=== PATIENT | female | born 1955 | race Caucasian/White ===

== ENCOUNTER → 2023-08-21 15:22 | Outpatient (REF) | payer MEDICARE, SELFPAY ==
[2023-08-21 16:00] LABS: % Basophils 0.4 % (0-2); % Lymphocytes 52.6 % (20.5-51.1); Absolute Lymphocytes 1.2 10^3/uL (1.2-3.4); Absolute Monocytes 0.2 10^3/uL (0.1-0.6); Absolute Neutrophils 0.9 10^3/uL (1.4-6.5); Hematocrit 34.2 % (37.0-47.0); Hemoglobin 12.7 g/dL (12.0-16.0); Mean Corp Hgb Conc. 37.1 g/dL (33.0-37.0); Mean Corpuscular Hgb 43.3 pg (27.0-31.0); Mean Corpuscular Volume 116.7 fL (81.0-99.0); Mean Platelet Volume 9.5 fL (7.4-10.4); Nucleated Red Blood Cells % 0 %; Platelet Count 207 10^3/uL (130-400); Red Blood Cell Count 2.93 10^6/uL (4.20-5.40); Red Cell Dist. Width 11.9 % (11.5-14.5); White Blood Cell Count 2.3 10^3/uL (4.8-10.8)
[2023-08-21 16:27] LABS: ALT (SGPT) 18 U/L (0-35); AST (SGOT) 43 U/L (14-36); Albumin 4.2 g/dl (3.5-5.0); Alkaline Phosphatase 48 U/L (38-126); Blood Urea Nitrogen 9 mg/dl (7-17); Calcium 9.9 mg/dl (8.4-10.2); Carbon Dioxide 31 mmol/L (22-30); Chloride 92 mmol/L (98-107); Glucose 157 mg/dl (70-99); Potassium 4.2 mmol/L (3.5-5.1); Sodium 131 mmol/L (135-145); Total Bilirubin 0.9 mg/dl (0.2-1.3); Total Protein 7.4 g/dl (6.3-8.2); eGFR > 60.00
== END ==
LOC: REG 15:22
PROVIDERS: ATTENDING PHYSICIAN Internal Medicine Rheumatology; FAMILY PHYSICIAN Family Medicine
DX: M05.9 Rheumatoid arthritis with rheumatoid factor, unspecified (principal); Z51.81 Encounter for therapeutic drug level monitoring
CPT/HCPCS: 36415; 80053; 85025; 86140

== ENCOUNTER → 2023-10-28 11:29 | Outpatient (REF) | payer MEDICARE, SELFPAY ==
[2023-10-28 12:25] LABS: % Basophils 0.5 % (0-2); % Immature Granulocytes 0.8 % (0-0.5); % Lymphocytes 21.6 % (20.5-51.1); % Monocytes 8.8 % (1.7-9.3); % Neutrophils 68.3 % (42.2-75.2); Absolute Lymphocytes 0.8 10^3/uL (1.2-3.4); Absolute Monocytes 0.3 10^3/uL (0.1-0.6); Absolute Neutrophils 2.7 10^3/uL (1.4-6.5); Hematocrit 21.1 % (37.0-47.0); Hemoglobin 7.2 g/dL (12.0-16.0); Mean Corp Hgb Conc. 34.1 g/dL (33.0-37.0); Mean Corpuscular Hgb 41.1 pg (27.0-31.0); Mean Corpuscular Volume 120.6 fL (81.0-99.0); Nucleated Red Blood Cells % 0 %; Platelet Count 278 10^3/uL (130-400); Red Blood Cell Count 1.75 10^6/uL (4.20-5.40); Red Cell Dist. Width 13.2 % (11.5-14.5); White Blood Cell Count 3.9 10^3/uL (4.8-10.8)
[2023-10-28 13:02] LABS: ALT (SGPT) 12 U/L (0-35); AST (SGOT) 32 U/L (14-36); Albumin 3.9 g/dl (3.5-5.0); Alkaline Phosphatase 60 U/L (38-126); Blood Urea Nitrogen 3 mg/dl (7-17); Calcium 9.6 mg/dl (8.4-10.2); Carbon Dioxide 26 mmol/L (22-30); Chloride 95 mmol/L (98-107); Glucose 95 mg/dl (70-99); Potassium 4.7 mmol/L (3.5-5.1); Sodium 129 mmol/L (135-145); Total Bilirubin 0.5 mg/dl (0.2-1.3); Total Protein 6.4 g/dl (6.3-8.2); eGFR > 60.00
[2023-10-28 13:05] LABS: C-Reactive Protein < 5.00 mg/L (0.0-10.00)
== END ==
LOC: REG 11:29
PROVIDERS: ATTENDING PHYSICIAN Internal Medicine Rheumatology; FAMILY PHYSICIAN Family Medicine; REFERRING PHYSICIAN Internal Medicine Hematology & Oncology
DX: M05.9 Rheumatoid arthritis with rheumatoid factor, unspecified (principal); Z51.81 Encounter for therapeutic drug level monitoring
CPT/HCPCS: 36415; 80053; 85025; 86140

== ENCOUNTER → 2023-12-22 14:42 | Outpatient (REF) | payer MEDICARE, SELFPAY ==
[2023-12-22 15:40] LABS: % Basophils 0.9 % (0-2); % Eosinophils 0.5 % (0-6); % Immature Granulocytes 0.5 % (0-0.5); % Lymphocytes 41.4 % (20.5-51.1); % Monocytes 9.5 % (1.7-9.3); % Neutrophils 47.2 % (42.2-75.2); Absolute Lymphocytes 0.9 10^3/uL (1.2-3.4); Absolute Monocytes 0.2 10^3/uL (0.1-0.6); Absolute Neutrophils 1.1 10^3/uL (1.4-6.5); Hematocrit 35.2 % (37.0-47.0); Hemoglobin 12.7 g/dL (12.0-16.0); Mean Corp Hgb Conc. 36.1 g/dL (33.0-37.0); Mean Corpuscular Hgb 39.4 pg (27.0-31.0); Mean Corpuscular Volume 109.3 fL (81.0-99.0); Mean Platelet Volume 9.9 fL (7.4-10.4); Nucleated Red Blood Cells % 0 %; Platelet Count 268 10^3/uL (130-400); Red Blood Cell Count 3.22 10^6/uL (4.20-5.40); Red Cell Dist. Width 11.6 % (11.5-14.5); White Blood Cell Count 2.2 10^3/uL (4.8-10.8)
[2023-12-22 16:08] LABS: ALT (SGPT) 15 U/L (0-35); AST (SGOT) 40 U/L (14-36); Albumin 4.9 g/dl (3.5-5.0); Alkaline Phosphatase 59 U/L (38-126); Blood Urea Nitrogen 14 mg/dl (7-17); C-Reactive Protein < 5.00 mg/L (0.0-10.00); Calcium 9.9 mg/dl (8.4-10.2); Carbon Dioxide 29 mmol/L (22-30); Chloride 94 mmol/L (98-107); Glucose 131 mg/dl (70-99); Potassium 4.7 mmol/L (3.5-5.1); Sodium 133 mmol/L (135-145); Total Bilirubin 0.4 mg/dl (0.2-1.3); Total Protein 8.2 g/dl (6.3-8.2); eGFR > 60.00
== END ==
LOC: REG 14:42
PROVIDERS: ATTENDING PHYSICIAN Internal Medicine Rheumatology; FAMILY PHYSICIAN Family Medicine
DX: M05.9 Rheumatoid arthritis with rheumatoid factor, unspecified (principal); Z51.81 Encounter for therapeutic drug level monitoring
CPT/HCPCS: 36415; 80053; 85025; 86140

== ENCOUNTER → 2024-01-20 15:08 | Outpatient (REF) | payer MEDICARE, SELFPAY ==
[2024-01-20 16:08] LABS: % Basophils 0.2 % (0-2); % Eosinophils 0.5 % (0-6); % Immature Granulocytes 0.2 % (0-0.5); % Lymphocytes 22.8 % (20.5-51.1); % Monocytes 7.8 % (1.7-9.3); % Neutrophils 68.5 % (42.2-75.2); Absolute Monocytes 0.3 10^3/uL (0.1-0.6); Hematocrit 33.6 % (37.0-47.0); Hemoglobin 12.5 g/dL (12.0-16.0); Mean Corp Hgb Conc. 37.2 g/dL (33.0-37.0); Mean Corpuscular Hgb 39.8 pg (27.0-31.0); Mean Platelet Volume 9.9 fL (7.4-10.4); Nucleated Red Blood Cells % 0 %; Platelet Count 210 10^3/uL (130-400); Red Blood Cell Count 3.14 10^6/uL (4.20-5.40); Red Cell Dist. Width 11.9 % (11.5-14.5); Reticulocyte Count 1.5 % (0.4-2.8); White Blood Cell Count 4.4 10^3/uL (4.8-10.8)
[2024-01-20 16:20] LABS: ALT (SGPT) 14 U/L (0-35); AST (SGOT) 36 U/L (14-36); Albumin 4.5 g/dl (3.5-5.0); Alkaline Phosphatase 48 U/L (38-126); Blood Urea Nitrogen 13 mg/dl (7-17); Calcium 10.1 mg/dl (8.4-10.2); Carbon Dioxide 28 mmol/L (22-30); Chloride 93 mmol/L (98-107); Glucose 106 mg/dl (70-99); Potassium 4.5 mmol/L (3.5-5.1); Sodium 130 mmol/L (135-145); Total Bilirubin 0.7 mg/dl (0.2-1.3); Total Protein 7.1 g/dl (6.3-8.2); eGFR > 60.00
[2024-01-20 16:23] LABS: C-Reactive Protein < 5.00 mg/L (0.0-10.00)
[2024-01-20 16:40] LABS: Vitamin D, 25-OH*** 30.4 ng/mL (30-80)
[2024-01-20 17:29] LABS: Folate 4.6 ng/ml (2.76-20); Vitamin B12 206 pg/ml (239-931)
[2024-01-21 10:21] LABS: Intact PTH 64.6 pg/ml (13.6-85.8)
== END ==
LOC: REG 15:08
PROVIDERS: ATTENDING PHYSICIAN Internal Medicine Hematology & Oncology; FAMILY PHYSICIAN Family Medicine; REFERRING PHYSICIAN Internal Medicine Rheumatology
DX: E55.9 Vitamin D deficiency, unspecified (principal); M05.9 Rheumatoid arthritis with rheumatoid factor, unspecified; Z51.81 Encounter for therapeutic drug level monitoring; C91.Z0 Other lymphoid leukemia not having achieved remission; M06.9 Rheumatoid arthritis, unspecified; D51.9 Vitamin B12 deficiency anemia, unspecified
CPT/HCPCS: 36415; 80053; 82306; 82607; 82746; 83970; 85025; 85045; 86140

== ENCOUNTER → 2024-02-19 10:57 | Outpatient (REF) | payer MEDICARE, SELFPAY | LOC: RAD 10:57 | PROVIDERS: ATTENDING PHYSICIAN Internal Medicine Rheumatology; FAMILY PHYSICIAN Family Medicine | DX: M81.0 Age-related osteoporosis without current pathological fracture (principal) | CPT/HCPCS: 77080; 77081 ==

== ENCOUNTER → 2024-02-27 10:35 | Outpatient (REF) | payer MEDICARE, SELFPAY | LOC: RAD 10:35 | PROVIDERS: ATTENDING PHYSICIAN Internal Medicine Rheumatology; FAMILY PHYSICIAN Family Medicine | DX: R94.5 Abnormal results of liver function studies (principal) | CPT/HCPCS: 76700 ==

== ENCOUNTER → 2024-05-26 11:32 | Outpatient (REF) | payer MEDICARE, SELFPAY ==
[2024-05-26 14:19] LABS: % Basophils 0.5 % (0-2); % Immature Granulocytes 0.5 % (0-0.5); % Lymphocytes 26.4 % (20.5-51.1); % Monocytes 11.4 % (1.7-9.3); % Neutrophils 61.2 % (42.2-75.2); Absolute Lymphocytes 0.6 10^3/uL (1.2-3.4); Absolute Monocytes 0.3 10^3/uL (0.1-0.6); Absolute Neutrophils 1.4 10^3/uL (1.4-6.5); Hematocrit 30.9 % (37.0-47.0); Hemoglobin 11.5 g/dL (12.0-16.0); Mean Corp Hgb Conc. 37.2 g/dL (33.0-37.0); Mean Corpuscular Hgb 40.8 pg (27.0-31.0); Mean Corpuscular Volume 109.6 fL (81.0-99.0); Mean Platelet Volume 10.2 fL (7.4-10.4); Nucleated Red Blood Cells % 0 %; Platelet Count 220 10^3/uL (130-400); Red Blood Cell Count 2.82 10^6/uL (4.20-5.40); Red Cell Dist. Width 11.8 % (11.5-14.5); White Blood Cell Count 2.2 10^3/uL (4.8-10.8)
[2024-05-26 14:41] LABS: Folate 4.1 ng/ml (2.76-20); Vitamin B12 867 pg/ml (239-931)
== END ==
LOC: REG 11:32
PROVIDERS: ATTENDING PHYSICIAN Internal Medicine Hematology & Oncology; FAMILY PHYSICIAN Family Medicine
DX: C91.Z0 Other lymphoid leukemia not having achieved remission (principal); M06.9 Rheumatoid arthritis, unspecified; D51.9 Vitamin B12 deficiency anemia, unspecified
CPT/HCPCS: 36415; 82607; 82746; 83516; 85025; 86340

== ENCOUNTER → 2024-10-18 13:04 | Outpatient (REF) | payer MEDICARE, SELFPAY ==
[2024-10-18 13:53] LABS: % Basophils 0.7 % (0-2); % Eosinophils 0.3 % (0-6); % Immature Granulocytes 0.3 % (0-0.5); % Lymphocytes 24.2 % (20.5-51.1); % Monocytes 10.9 % (1.7-9.3); % Neutrophils 63.6 % (42.2-75.2); Absolute Lymphocytes 0.7 10^3/uL (1.2-3.4); Absolute Monocytes 0.3 10^3/uL (0.1-0.6); Absolute Neutrophils 1.9 10^3/uL (1.4-6.5); Hematocrit 33.9 % (37.0-47.0); Hemoglobin 12.3 g/dL (12.0-16.0); Mean Corp Hgb Conc. 36.3 g/dL (33.0-37.0); Mean Corpuscular Hgb 40.1 pg (27.0-31.0); Mean Corpuscular Volume 110.4 fL (81.0-99.0); Mean Platelet Volume 9.7 fL (7.4-10.4); Nucleated Red Blood Cells % 0 %; Platelet Count 232 10^3/uL (130-400); Red Blood Cell Count 3.07 10^6/uL (4.20-5.40); Red Cell Dist. Width 12.8 % (11.5-14.5)
[2024-10-18 14:25] LABS: ALT (SGPT) 14 U/L (0-35); AST (SGOT) 29 U/L (14-36); Albumin 4.1 g/dl (3.5-5.0); Alkaline Phosphatase 50 U/L (38-126); Blood Urea Nitrogen 14 mg/dl (7-17); Calcium 10.4 mg/dl (8.4-10.2); Carbon Dioxide 29 mmol/L (22-30); Chloride 97 mmol/L (98-107); Glucose 130 mg/dl (70-99); LDH 186 U/L (120-246); Potassium 4.3 mmol/L (3.5-5.1); Sodium 134 mmol/L (135-145); Total Bilirubin 0.7 mg/dl (0.2-1.3); eGFR > 60.00
[2024-10-18 14:28] LABS: C-Reactive Protein < 5.00 mg/L (0.0-10.00)
[2024-10-18 15:34] LABS: Folate 3.8 ng/ml (2.76-20); Vitamin B12 471 pg/ml (239-931)
== END ==
LOC: REG 13:04
PROVIDERS: ATTENDING PHYSICIAN Internal Medicine Rheumatology; FAMILY PHYSICIAN Family Medicine; REFERRING PHYSICIAN Internal Medicine Hematology & Oncology
DX: C91.Z0 Other lymphoid leukemia not having achieved remission (principal); M06.9 Rheumatoid arthritis, unspecified; D51.9 Vitamin B12 deficiency anemia, unspecified; M05.9 Rheumatoid arthritis with rheumatoid factor, unspecified; Z51.81 Encounter for therapeutic drug level monitoring; M19.039 Primary osteoarthritis, unspecified wrist
CPT/HCPCS: 36415; 73100; 80053; 82607; 82746; 83615; 85025; 86140

== ENCOUNTER → 2025-03-28 13:39 | Outpatient (REF) | payer MEDICARE, SELFPAY ==
[2025-03-28 15:06] LABS: Blood Urea Nitrogen 8 mg/dl (7-17)
== END ==
LOC: REG 13:39
PROVIDERS: ATTENDING PHYSICIAN Otolaryngology; FAMILY PHYSICIAN Family Medicine
DX: C44.02 Squamous cell carcinoma of skin of lip (principal)
CPT/HCPCS: 36415; 82565; 84520

== ENCOUNTER → 2025-03-29 08:51 | Outpatient (REF) | payer MEDICARE, SELFPAY | LOC: RAD 08:51 | PROVIDERS: ATTENDING PHYSICIAN Otolaryngology; FAMILY PHYSICIAN Family Medicine | DX: C44.02 Squamous cell carcinoma of skin of lip (principal) | CPT/HCPCS: 70491; Q9967 ==

== ENCOUNTER 2025-05-17 22:38 | Inpatient (IN) | payer MEDICARE, SELFPAY ==
[2025-05-17 17:36] VITALS: BP 176/80
[2025-05-17 18:07] LABS: Hematocrit 35.7 % (37.0-47.0); Hemoglobin 12.8 g/dL (12.0-16.0); Mean Corp Hgb Conc. 35.9 g/dL (33.0-37.0); Mean Corpuscular Volume 103.2 fL (81.0-99.0); Nucleated Red Blood Cells % 0 %; Platelet Count 179 10^3/uL (130-400); Red Cell Dist. Width 11.8 % (11.5-14.5)
[2025-05-17 18:17] LABS: ALT (SGPT) 11 U/L (0-35); AST (SGOT) 22 U/L (14-36); Albumin 4.2 g/dl (3.5-5.0); Alkaline Phosphatase 66 U/L (38-126); Blood Urea Nitrogen 14 mg/dl (7-17); Calcium 9.3 mg/dl (8.4-10.2); Carbon Dioxide 22 mmol/L (22-30); Chloride 89 mmol/L (98-107); Glucose 126 mg/dl (70-99); Lipase 271 U/L (23-300); Potassium 2.8 mmol/L (3.5-5.1); Sodium 126 mmol/L (135-145); Total Protein 7.9 g/dl (6.3-8.2); eGFR > 60.00
[2025-05-17 20:47] VITALS: BP 191/72
[2025-05-17 20:48] VITALS: BMI 19.7
[2025-05-17 21:04] VITALS: BP 199/74
--- NOTE | 2025-05-17 21:21 | ED.GENMED ---
History of Present Illness
<Rena Melgar NP - Last Filed: 05/18/25 14:08>
General
Chief Complaint: Failure to Thrive
Source: patient, spouse and family (son)
Exam Limitations: none
Time Seen by Provider: 05/17/25 21:01
History of Present Illness
History of Present Illness:
Patient to ED for evaluation of increasing weakness poor appetite. According to spouse patient had surgical removal of skin cancer from her left cheek and upper lip. Procedure was done at [facility] on April 29. Sutures were removed on April
, no further visits were required. Spouse reports that since the procedure she has not been eating or drinking. She has become very weak and is now unable to ambulate or transfer without max assistance. He reports that he was only able to give
her a small amount of soup this morning. She denies any pain or discomfort. Brought to the emergency room by spouse and son for evaluation.
Past History
<Rena Melgar NP - Last Filed: 05/18/25 14:08>
Past History
ED Past Medical History: Arrthythmia (Palpitations), HTN and Other (Rheumatoid arthritis)
ED Past Surgical History: Negative Cardiac
Social History
Tobacco: Smoker
Alcohol: Daily
Drug: None
Personal:
Living: with family
Family History
Family History: Hypertension
Review of Systems
<Rena Melgar NP - Last Filed: 05/18/25 14:08>
Review of Systems
Allergies reviewed?: Yes
All Other Systems: ROS reviewed and negative except as documented in HPI and ROS
Constitutional: Reports no symptoms
EENT: Reports other (Skin cancer removed from left cheek and left upper lip. No opening is noted at the center of the incision. She denies any pain she denies any discharge.)
Respiratory: Reports no symptoms
Cardiac: Reports no symptoms
ABD/GI: Reports anorexia
: Reports no symptoms
Musculoskeletal: Reports no symptoms
Skin: Reports other (Surgical excision of skin cancer to left side of face and lip on 04/29. 1 cm round opening noted at center of incision. There is no drainage)
Neurological: Reports weakness
Psychiatric: Reports no symptoms
Phy Exam
<Rena Melgar NP - Last Filed: 05/18/25 14:08>
General Physical Exam
General Presentation: moderate distress
General age: appears stated age
General Skin: warm and dry
General Habitus: normal
General Mental: alert
Cardiovascular Exam
Cardiovascular Exam: regular rate/rhythm and no edema
Pulmonary Exam
Pulmonary Exam: lungs clear and no respiratory distress
Gastrointestinal Exam
Gastrointestinal Exam: normal bowel sounds, non tender, soft, no organomegaly and non distended
Musculoskeletal Exam
Musculoskeletal Exam: no edema and neuro vasc intact
Skin Exam
Skin Exam: warm/dry, no rash and other (Surgical incision noted on left side of face involving the upper lip. There is a 1 cm opening noted to center of incision. Opening tracks through buccal mucosa. There is no drainage, no erythema.)
Psychiatric Exam
Psychiatric Exam: normal mood/affect
Course
<Rena Melgar HAND SHAKER - Last Filed: 05/18/25 14:08>
Orders/Labs/Results
Orders:
Orders
05/17/25 Breakfast
Regular
At Your Request: Limited Participation
Oral Supplement (If unsure of flavor order apple or vanilla): Ensure Enlive Chocolate
Supplement Frequency: Daily
05/17/25 17:45
Complete Blood Count/With Diff Urgent
Comprehensive Metabolic Panel Urgent
Lipase Urgent
Magnesium Urgent
Comment: ADD ON
05/17/25 21:34
0.9% Sodium Chloride 1000 ml [Nss] 1,000 ml IV BOLUS
05/17/25 21:35
Urinalysis Reflex To Culture Urgent
Date Specimen was Collected: 05/18/25
Time Specimen was Collected: 03:08
05/17/25 21:45
Potassium Chloride [KCl] 40 meq 0.9% Sodium Chloride 250 ml [Nss] 250 ml IV NOW
05/17/25 22:23
Admit/Transfer Patient As Directed
Co-Sign Provider:
Level of Care: Inpatient admission
Assign to:: Telemetry
Physician / Group: angelica
Diagnosis: ambuloaty dysfunction
Reason for Telemetry: Other
Other Reason for Telemetry: hypokalemia
Date to Stop Telemetry: 05/19/25
Time to Stop Telemetry: 11:00
Reason for Hospitalization: ambulatory dysfunction
generalized weakness
Expected length of stay greater than two midnights?: Yes
ELOS- Estimated Length of Stay in days: 3
I certify the patient meets the requirements for IP care: Yes
Wound Culture [Wound/Abscess/Other Culture] Urgent
ADELINA Source: Face
Specimen Description: Left
Date Specimen was Collected: 05/17/25
Time Specimen was Collected: 22:08
PRN Pain Medication Management As Directed
May give lesser potent ordered pain med per pt: Yes
preference::
Protocol:: Medication orders for pain may be administered in a
manner that supports deferring to patient preference
when the pt is:
- Requesting an ordered lesser potent pain medication.
Least to most potent pain medications are defined
as: acetaminophen < NSAID < tramadol < opioids
(morphine, oxycodone, hydromorphone).
- Requesting a lesser dose of the same medication IF
ORDERED.
- Requesting a less intrusive route of administration
if both routes are prescribed by the provider (PO <
IV).
05/17/25 22:24
Code Status As Directed
Resuscitation Status: Full Code
05/17/25 22:28
Add On- LAB Urgent
Tests Added?: Magnesium
05/17/25 22:31
Potassium Chloride [KCl] 40 meq PO NOW STA
05/17/25 22:33
HydrALAZINE [Apresoline] 100 mg PO NOW STA
Metoprolol [Lopressor] 100 mg PO NOW STA
05/17/25 23:54
Acetaminophen [Tylenol] 650 mg PO Q4HPRN PRN
Bisacodyl [Dulcolax] 10 mg RECTAL [id number] PRN
Docusate W/Senna [Senokot-S] 1 tablet PO BIDPRN PRN
Polyethylene Glycol Powder [Miralax] 17 grams PO DAILYPRN PRN
05/17/25 23:54
NUTRITIONAL SUPPORT TEAM Routine
Activity As Directed
Activity Level: As Tolerated
Intake/ Output As Directed
Frequency: Per unit guidelines
Vital Signs As Directed
Frequency: Per unit guidelines
Weight As Directed
Frequency: Daily
Ot Eval And Treat Routine
Pt Eval And Treat Routine
Activity Level: As Tolerated
DX Deep Vein Thrombosis Video Routine
05/18/25 06:04
Basic Metabolic Panel IN AM
Complete Blood Count/No Diff IN AM
05/18/25 08:00
HydrALAZINE [Apresoline] 100 mg PO TID
Metoprolol [Lopressor] 100 mg PO BID
05/18/25 18:00
Enoxaparin Sodium [Lovenox] 40 mg SC QPM
05/19/25 06:00
Basic Metabolic Panel IN AM
Complete Blood Count/No Diff IN AM
05/19/25 11:00
DC Protocol for Telemetry ONCE
05/20/25 06:00
Basic Metabolic Panel IN AM
Complete Blood Count/No Diff IN AM
05/21/25 06:00
Basic Metabolic Panel IN AM
Complete Blood Count/No Diff IN AM
Abnormal Lab Results
05/17/25
17:45
WBC 2.3 L* 10^3/uL
(4.8-10.8)
RBC 3.46 L 10^6/uL
(4.20-5.40)
Hct 35.7 L %
(37.0-47.0)
MCV 103.2 H fL
(81.0-99.0)
MCH 37.0 H pg
(27.0-31.0)
Absolute Lymphs (auto) 0.5 L 10^3/uL
(1.2-3.4)
Monocytes % 16.6 H %
(1.7-9.3)
Sodium 126 L mmol/L
(135-145)
Potassium 2.8 L mmol/L
(3.5-5.1)
Chloride 89 L mmol/L
(98-107)
Creatinine 0.4 L mg/dL
(0.6-1.0)
Glucose 126 H mg/dl
(70-99)
Magnesium 1.4 L mg/dl
(1.6-2.3)
05/17/25 17:45
05/17/25 17:45
Vital Signs
Initial and Last Documented VS:
Initial Vital Signs
Temp Pulse Resp BP Pulse Ox
97.5 F 71 16 176/80 99
05/17/25 17:36 05/17/25 17:36 05/17/25 17:36 05/17/25 17:36 05/17/25 17:36
Last Documented Vital Signs
Temp Pulse Resp BP Pulse Ox
98.4 F 64 18 183/89 97
05/18/25 11:32 05/18/25 11:32 05/18/25 11:32 05/18/25 11:32 05/18/25 11:32
<Carmen Turner MD - Last Filed: 05/17/25 22:58>
Orders/Labs/Results
Orders:
Orders
05/17/25 Breakfast
Regular
At Your Request: Limited Participation
Oral Supplement (If unsure of flavor order apple or vanilla): Ensure Enlive Chocolate
Supplement Frequency: Daily
05/17/25 17:45
Complete Blood Count/With Diff Urgent
Comprehensive Metabolic Panel Urgent
Lipase Urgent
Magnesium Urgent
Comment: ADD ON
05/17/25 21:34
0.9% Sodium Chloride 1000 ml [Nss] 1,000 ml IV BOLUS
05/17/25 21:35
Urinalysis Reflex To Culture Urgent
Date Specimen was Collected: 05/18/25
Time Specimen was Collected: 03:08
05/17/25 21:45
Potassium Chloride [KCl] 40 meq 0.9% Sodium Chloride 250 ml [Nss] 250 ml IV NOW
05/17/25 22:23
Admit/Transfer Patient As Directed
Co-Sign Provider:
Level of Care: Inpatient admission
Assign to:: Telemetry
Physician / Group: angelica
Diagnosis: ambuloaty dysfunction
Reason for Telemetry: Other
Other Reason for Telemetry: hypokalemia
Date to Stop Telemetry: 05/19/25
Time to Stop Telemetry: 11:00
Reason for Hospitalization: ambulatory dysfunction
generalized weakness
Expected length of stay greater than two midnights?: Yes
ELOS- Estimated Length of Stay in days: 3
I certify the patient meets the requirements for IP care: Yes
Wound Culture [Wound/Abscess/Other Culture] Urgent
ADELINA Source: Face
Specimen Description: Left
Date Specimen was Collected: 05/17/25
Time Specimen was Collected: 22:08
PRN Pain Medication Management As Directed
May give lesser potent ordered pain med per pt: Yes
preference::
Protocol:: Medication orders for pain may be administered in a
manner that supports deferring to patient preference
when the pt is:
- Requesting an ordered lesser potent pain medication.
Least to most potent pain medications are defined
as: acetaminophen < NSAID < tramadol < opioids
(morphine, oxycodone, hydromorphone).
- Requesting a lesser dose of the same medication IF
ORDERED.
- Requesting a less intrusive route of administration
if both routes are prescribed by the provider (PO <
IV).
05/17/25 22:24
Code Status As Directed
Resuscitation Status: Full Code
05/17/25 22:28
Add On- LAB Urgent
Tests Added?: Magnesium
05/17/25 22:31
Potassium Chloride [KCl] 40 meq PO NOW STA
05/17/25 22:33
HydrALAZINE [Apresoline] 100 mg PO NOW STA
Metoprolol [Lopressor] 100 mg PO NOW STA
05/17/25 23:54
Acetaminophen [Tylenol] 650 mg PO Q4HPRN PRN
Bisacodyl [Dulcolax] 10 mg RECTAL [id number] PRN
Docusate W/Senna [Senokot-S] 1 tablet PO BIDPRN PRN
Polyethylene Glycol Powder [Miralax] 17 grams PO DAILYPRN PRN
05/17/25 23:54
NUTRITIONAL SUPPORT TEAM Routine
Activity As Directed
Activity Level: As Tolerated
Intake/ Output As Directed
Frequency: Per unit guidelines
Vital Signs As Directed
Frequency: Per unit guidelines
Weight As Directed
Frequency: Daily
Ot Eval And Treat Routine
Pt Eval And Treat Routine
Activity Level: As Tolerated
DX Deep Vein Thrombosis Video Routine
05/18/25 06:04
Basic Metabolic Panel IN AM
Complete Blood Count/No Diff IN AM
05/18/25 08:00
HydrALAZINE [Apresoline] 100 mg PO TID
Metoprolol [Lopressor] 100 mg PO BID
05/18/25 18:00
Enoxaparin Sodium [Lovenox] 40 mg SC QPM
05/19/25 06:00
Basic Metabolic Panel IN AM
Complete Blood Count/No Diff IN AM
05/19/25 11:00
DC Protocol for Telemetry ONCE
05/20/25 06:00
Basic Metabolic Panel IN AM
Complete Blood Count/No Diff IN AM
05/21/25 06:00
Basic Metabolic Panel IN AM
Complete Blood Count/No Diff IN AM
Abnormal Lab Results
05/17/25
17:45
WBC 2.3 L* 10^3/uL
(4.8-10.8)
RBC 3.46 L 10^6/uL
(4.20-5.40)
Hct 35.7 L %
(37.0-47.0)
MCV 103.2 H fL
(81.0-99.0)
MCH 37.0 H pg
(27.0-31.0)
Absolute Lymphs (auto) 0.5 L 10^3/uL
(1.2-3.4)
Monocytes % 16.6 H %
(1.7-9.3)
Sodium 126 L mmol/L
(135-145)
Potassium 2.8 L mmol/L
(3.5-5.1)
Chloride 89 L mmol/L
(98-107)
Creatinine 0.4 L mg/dL
(0.6-1.0)
Glucose 126 H mg/dl
(70-99)
Magnesium 1.4 L mg/dl
(1.6-2.3)
05/17/25 17:45
05/17/25 17:45
Vital Signs
Initial and Last Documented VS:
Initial Vital Signs
Temp Pulse Resp BP Pulse Ox
97.5 F 71 16 176/80 99
05/17/25 17:36 05/17/25 17:36 05/17/25 17:36 05/17/25 17:36 05/17/25 17:36
Last Documented Vital Signs
Temp Pulse Resp BP Pulse Ox
98.4 F 64 18 183/89 97
05/18/25 11:32 05/18/25 11:32 05/18/25 11:32 05/18/25 11:32 05/18/25 11:32
<Rena Melgar NP - Last Filed: 05/18/25 14:08>
*Pulse Oximetry
SaO2: 98
Oxygen Mode of Delivery: Room air
Patient hypoxic: no
*Critical Care Note
Total Time (30-74mins, 75-104mins- exclusive of procedures): Not Applicable
<Rena Melgar NP - Last Filed: 05/18/25 14:08>
Update Note
Update Note:
Patient to the emergency department for evaluation of weakness poor appetite. She had a surgical incision of skin cancer completed on 04/29 area involved the left cheek and upper lip. Sutures were removed on 05/12. She presents today with a 1 cm
round opening at the center of the incision. The opening travels through to the left buccal mucosa. There is no surrounding erythema, there is no swelling or discharge. She is afebrile. Patient is visibly weak. Spouse states that she is no
longer able to ambulate or transfer without maximum assistance. Labs reviewed. WBC is 2.1 which is baseline for her. She is currently maintained on xeljanz for her rheumatoid arthritis. Sodium of 126 noted. Patient's spouse says she has had
low sodium in the past but he is unaware of what the actual level was., or what would be considered normal for her. Potassium is 2.8. Will admit to the hospitalist for weakness, hyponatremia, hypokalemia. IV fluids/K rider initiated
ED Attending Note
<Rena Melgar NP - Last Filed: 05/18/25 14:08>
-
Portions of this chart may have been created with voice recognition software.� Occasional wrong word or��sound alike� substitutions may have occurred due to the inherent limitations of voice recognition software.
<Carmen Turner MD - Last Filed: 05/17/25 22:58>
ED Attending Note
Patient seen and examined by attending physician: Yes
I performed the substantive portion of visit, reviewed & personally made and approve the management plan that is documented in note by myself or ANCA.: Yes
ED Attending Note:
Patient is breathing comfortably. Heart sounds regular.
Discharge Plan
Departure
Patient Disposition: Admit
Date of Disposition: 05/17/25
Time of Disposition: 21:36
Presentation/result/management discussed w/ accepting MD/DO: Hospitalist
Patient with high blood pressure during this ER visit?: No
Condition: Good
Covid-19: Not Applicable
Discharge Problem:
Weakness, Acute hyponatremia, Hypokalemia
Interventions
Interventions:
*Risk Screen - Suicide Last Done: 05/17/25 17:36
*General Assessment Last Done: 05/17/25 20:48
*Neglect/Abuse Screening Last Done: 05/17/25 17:36
*ED- Fall Risk Assessment Last Done: 05/17/25 20:48
*ED COVID-19 Vaccine History Last Done: 05/17/25 20:48
*ED Influenza Vaccine History Last Done: 05/17/25 20:48
*Nursing Disposition Last Done: 05/18/25 00:52
Discharge Date and Time
Discharge Date/Time: 05/18/25 00:53
--- NOTE | 2025-05-17 21:53 | HPS.HSE ---
Addendum entered and electronically signed by Foster Justin DO 05/17/25 23:28:
Patient seen and examined independently. Agree with findings and plan as set forth by ELIESER Henderson.
Patient is a 70y F with PMH significant for hypertension, RA and recent surgery for lip cancer who presents to ED for evaluation of poor PO intake and generalized weakness. History obtained from patient and family at the bedside. Patient
underwent surgery on 04/29 at [facility] surgical center for 'lip cancer'. Since that time she has not been eating / drinking very well at all. Patient denies any significant pain with eating, swallowing, etc.
Patient was seen about one week after surgery for suture removal. She was given Rx for Augmentin liquid and viscous lidocaine at that time which she took for 7 days. states that her appetite significantly decreased following that.
She has been nauseated with dry heaves but no actual emesis. Few loose stools - but small volume, no profuse diarrhea, bloody stools, etc.
No fevers / chills.
Patient has been increasingly weak and today was unable to get OOB even with assistance. Family brought her to the ED for further evaluation.
Ass:
Weakness / Fatigue
Hypokalemia
Chronic Hyponatremia
Skin Cancer / Lip Cancer s/p Excision on 04/29
Chronic Leukopenia
Chronic HFpEF
Benign Hypertension
Rheumatoid Arthritis
Plan:
Admit for further evaluation and treatment.
PO potassium replacement now and in AM.
Patient complains of burning with IV replacement - even at low rates.
Magnesium replacement.
Suspect anorexia / nausea due to abx course over the past 7-10 days.
Observe off of further abx for now.
Encourage PO intake.
Speech / Dietary evaluations.
BP markedly elevated - patient denies pain at present.
Continue metoprolol and hydralazine.
Change lisinopril to spironolactone and adjust dose as needed for improved BP control.
Follow serial labs / lytes.
IV hydralazine as needed for very high BP.
Wound Care for local care recommendations - follow-up with surgeon at [facility] after discharge.
Original Note:
Family Physician
-
Family Physician: Eugenia Cedeño
Chief Complaint
-
worsening weakness
poor appetite
History of Present Illness
70 year old with PMH for palpitation, HTn, RA presented to us with worsening weakness and poor appetite. According to spouse patient had surgical removal of skin cancer from her left cheek and upper lip on april 29 at [facility]. Sutures were
removed on May 09, no further visits were required. Spouse reports that since the procedure she has not been eating or drinking.denied trouble swallowing or chewing. she just don't feel like eating. patient stated some discomfort at the wound.
patient progressively getting weaker. she is not able to ambulate. she does not have any energy to do anything. she is complaining of dizzy. denied PANTOJA. denied fever, chills, cough, congestion. denied chest pain,sob. denied abdominal pain,n,v,d.
denied dysuria or hematuria
wound culture sent from ER. patient recived iv kcl and fluids in ER. admitting for further management.
Medical History
Past Medical History
Past Medical History: Reports Other
Additional Past Medical History:
Hypertension, gastric ulcer, rheumatoid arthritis, herpes zoster, SVT, hypertension, Carlson's esophagus
Past Surgical History: Reports Other
Additional Past Surgical History:
skin cancer surgery
Social History
Tobacco: Non-smoker
Alcohol: None
Drug: None
Personal:
Living: With Family
Family History
Family History: Not pertinent
Allergies / Home Medications
Allergies reflects when Allergies were last updated in [facility].
Home Medications with original date entered in [facility]
Allergy/Medication List:
Allergies
Allergy/AdvReac Type Severity Reaction Status Date / Time
No Known Allergies Allergy Verified 05/17/25 17:36
Home Medications
hydralazine 100 mg tablet 100 mg PO TID 03/03/19
metoprolol tartrate 100 mg tablet 100 mg PO BID 03/03/19
lisinopril 40 mg tablet 40 mg PO BID 03/21/23
magnesium oxide 400 mg PO Q72H 03/21/23
tofacitinib 5 mg tablet (Xeljanz) 5 mg PO BID 03/21/23
acetaminophen 500 mg tablet (Pain Relief Extra Strength (acetaminophen)) 1,000 mg (2 x 500 mg) PO TID Mild Pain #30 tabs 03/23/23
nifedipine 30 mg tablet,extended release 30 mg PO BID HTN #60 tabs 03/23/23
oxycodone 10 mg tablet 10 mg PO Q4HPRN PRN Mod sev pain #15 tabs 03/23/23
Review of Systems
-
Constitutional: Reports No Symptoms
EENT: Reports No Symptoms
Respiratory: Reports No Symptoms
Cardiac: Reports No Symptoms
: Reports No Symptoms
Musculoskeletal: Reports No Symptoms
Skin: Reports No Symptoms
Neurological: Reports Weakness
Endocrine: Reports No Symptoms
Hematologic/Lymphatic: Reports No Symptoms
Psych: Reports No Symptoms
Physical Exam
Vital Signs
Vital Signs
Temp Pulse Resp BP Pulse Ox
97.5 F 74 28 199/74 98
05/17/25 17:36 05/17/25 21:04 05/17/25 21:04 05/17/25 21:04 05/17/25 21:22
Physical Exam
General: Well Developed, Well Nourished and No Apparent Distress
HEENT: NormoCephalic, Moist mucous membranes and Atraumatic
Respiratory: Clear
Cardiac: S1/S2 and Regular Rhythm; No Murmur or Rub
GI: Soft, Non Tender, Non Distended and Normal Bowel Sounds; No Organomegaly
Rectal: Deferred by Provider
Musculoskeletal: No Clubbing, No Cyanosis and No Edema
Skin: Other (skin cancer removed from left cheeck and upper lip, opening on the edge of the wound)
Neuro: AO x 3 and Nonfocal/grossly intact
Psych: Calm
Laboratory Results
-
05/17/25 17:45
05/17/25 17:45
Laboratory Results
Total Bilirubin 0.9 mg/dl (0.2-1.3) 05/17/25 17:45
AST 22 U/L (14-36) 05/17/25 17:45
ALT 11 U/L (0-35) 05/17/25 17:45
Alkaline Phosphatase 66 U/L (38-126) 05/17/25 17:45
Lipase 271 U/L (23-300) 05/17/25 17:45
Data Reviewed
-
Lab Data: Labs Reviewed by me
Impression/Plan
-
#generalized weakness/ambulatory dysfunction likely from poor oral intake
-PT/OT consulted.
-nutrition consulted.
#acute on chornic hyponatremia/hypokalemia from poor oral intake
-na 126, k 2.8
- IV KCl in ER
-oral kcl
- Normal Saline x 1 bag in the ER
#lip/cheek cancer s/p removal on April 29
-wound culture obtained.
#chronic leukopenia
-wbc 2.3
#Chronic diastolic congestive heart failure grade 2
#Moderate aortic regurgitation
-strict I&O, daily weight
Essential/HTN
- hydralazine/lisinopril/metoprolol continued
Rheumatoid Arthritis
�- on Xeljanz, but not taking for past few weeks.
DVT Prophylaxis:� Lovenox
Code Status: Full
[2025-05-17 22:00] VITALS: BP 190/75
[2025-05-17] MEDS: KCL 270 MEQ IV (22:10)
[2025-05-17] MEDS: NSS 1000 IV (22:14)
[2025-05-17 22:44] VITALS: BP 197/70
[2025-05-17] MEDS: KCL 40 MEQ PO (22:44)
[2025-05-17] MEDS: APRESOLINE 100 MG PO (22:44)
[2025-05-17] MEDS: LOPRESSOR 100 MG PO (22:46)
[2025-05-17 23:00] LABS: Magnesium 1.4 mg/dl (1.6-2.3)
[2025-05-18] VITALS (12 sets, daily range): BP systolic 108–200; BP diastolic 70–94; PULSE 64–65; O2SAT 98–99; BMI 17.3
[2025-05-18] MEDS: MAGNESIUM SULFATE 50 IV (00:12)
[2025-05-18] MEDS: APRESOLINE 10 MG IV ×2 (01:30→05:33)
--- NOTE | 2025-05-18 03:14 | DOWNTIME ---
There was a [employer] Downtime on 05/18/2025 from 0100 to 05/18/2025 at 0255. Downtime documentation of patient's care, including medication administrations, has been reconciled in the electronic record per guidelines. Refer to the
patient's paper chart under the miscellaneous tab to see printed paper medication records and downtime forms.
[2025-05-18 03:28] LABS: Urine Character Clear (Clear)
[2025-05-18 03:54] LABS: Urine Squamous Cell 0-2 /LPF (Few)
[2025-05-18 03:55] LABS: Urine Red Blood Cell 0-2 /HPF (0-2); Urine White Cell 0-2 /HPF (0-5)
--- NOTE | 2025-05-18 05:27 | PTCARENOTE ---
Pt's blood pressure at 0505 this morning is 188/78, pulse-64. When she arrived from ED on the floor she was 200/94 around 1:20am and I gave her hydralazine IV PRN [id number]. She came down to 180/88 manual around 2:30am. But this morning she is
running high again 188/78 manually. She is not due for PRN Hydralazine till 7:30am. Notified BRASS POLISHER. BRASS POLISHER changed the order of Hydralazine to [id number] PRN.
--- NOTE | 2025-05-18 05:29 | PTCARENOTE ---
Pt arrived from ED on stretcher. Pt was pulled over from stretcher to bed safely. Pt had Magnisum IV fluids running. Pt is AO*3 and cooperative. Bed alarm in place. Pt's family at bedside on arrival. Educated pt on use of call sharif. Will continue to
monitor pt.
[2025-05-18 06:55] LABS: Hematocrit 34.7 % (37.0-47.0); Hemoglobin 12.4 g/dL (12.0-16.0); Mean Corp Hgb Conc. 35.7 g/dL (33.0-37.0); Mean Corpuscular Volume 103.3 fL (81.0-99.0); Platelet Count 177 10^3/uL (130-400); Red Cell Dist. Width 11.7 % (11.5-14.5)
[2025-05-18 07:25] LABS: Blood Urea Nitrogen 10 mg/dl (7-17); Calcium 8.6 mg/dl (8.4-10.2); Carbon Dioxide 22 mmol/L (22-30); Chloride 92 mmol/L (98-107); Estimated Creatinine Clearance 56 ml/min; Glucose 111 mg/dl (70-99); Potassium 2.7 mmol/L (3.5-5.1); Sodium 125 mmol/L (135-145); eGFR > 60.00
[2025-05-18] MEDS: KCL ELIXIR 40 MEQ PO (07:44)
[2025-05-18] MEDS: ALDACTONE PO (07:49)
[2025-05-18] MEDS: APRESOLINE 100 MG PO ×3 (07:50→21:26)
[2025-05-18] MEDS: LOPRESSOR 100 MG PO ×2 (07:50→19:48)
[2025-05-18] MEDS: NSS 1000 IV ×2 (08:35→20:50)
[2025-05-18] MEDS: ZOFRAN 4 MG IV (08:35)
[2025-05-18] MEDS: KCL 270 MEQ IV ×2 (08:35→13:13)
[2025-05-18] MEDS: ALDACTONE 12.5 MG PO ×2 (09:31→12:53)
--- NOTE | 2025-05-18 10:55 | W.PN.HOSP.TC ---
Today's Communication/Plan
-
neuro workup
wound care evaluation for recent surgical facial wound
IVF and replete lytes; encourage oral intake. repeat BMP 3 pm
SNF referrals
ST eval
Assessment / Plan
Assessment / Plan
Assessment:
acute on chronic encephalopathy, chronic per patients
- check MRI brain
- metabolic workup
- PT/OT evals - SNF recommended
- needs formal OP Dementia evaluation
Hyponatremia, acute on chronic
Hypochloremia
- IVF - NSS
- monitor BMP
Hypokalemia
Hypomagnesemia
- repleted via IV in ER, repeat level pending
Weakness/Fatigue from poor oral intake
- recent abx course could be affecting oral intake
- probiotic added
- monitor oral intake
- PT/OT evals - SNF recommended
Skin Cancer/Lip Cancer s/p Excision on 04/29
- [facility] ([facility] - Dr. Kaur Alcantara
- seen 05/09 - suture were removed
- completed 1 week of Augmentin previously
- has appointment Friday this week
- monitor drainage, monitor fevers
- wound care evaluation
Chronic Leukopenia
Chronic HFpEF
Benign Hypertension
- continue Hydralazine/BB - titrate as needed
- new to Aldactone - titrate to 25mg daily for SBP <150
Rheumatoid Arthritis
- hold Xeljanz
DVT ppx: Lovenox
Code: Full
Anticipated Discharge: > 48 hours
Subjective/Interval History
-
Date of Service: May 18, 2025
oriented to self, knows month and upcoming thanksgiving holiday
denies any specific complaints at present
Objective Data
-
Labs:
Laboratory Results
05/18/25
06:04
WBC 3.0 L
Hgb 12.4
Hct 34.7 L
Plt Count 177
Sodium 125 L
Potassium 2.7 L*
Chloride 92 L
Carbon Dioxide 22
BUN 10
Creatinine 0.4 L
Glucose 111 H
Calcium 8.6
Vital Signs:
Vital Signs
Temp Pulse Resp BP Pulse Ox
98.4 F 64 18 175/78 97
05/18/25 08:02 05/18/25 08:02 05/18/25 08:02 05/18/25 08:02 05/18/25 08:02
I&O
05/17/25 05/18/25 05/19/25
06:59 06:59 06:59
Intake Total 0 / 0
Output Total 700 / 700
Balance -700 / -700
Physical Exam
-
General: No Apparent Distress
HEENT: Normocephalic, Atraumatic and Other (L facial- skin cancer removed from left cheeck and upper lip, opening on the edge of the wound - scant thin drainage)
Cardiac: Regular Rhythm and S1/S2
Genito-urinary: No Costovertebral Tender
Neuro: Awake, Alert, Oriented (x1 self) and No Motor Deficits
Psych: Calm
Data Reviewed
-
Total Time Spent with Patient (in minutes): 45
Labs: Labs Reviewed by me
[2025-05-18] MEDS: VISBIOME 1 CAP PO (12:53)
--- NOTE | 2025-05-18 14:07 | WOUNDNOTE ---
LIP(LEFT SIDE)
--- NOTE | 2025-05-18 14:39 | WOUNDNOTE ---
WO RN NOTE: Reviewed chart and met with patient. Patient is s/p L facial- skin cancer removal from left check and upper lip, opening on the edge of the wound note. Edge of wound is covered with adherent slough with scant serous drainage. No odor
is noted. Nutritional support has been ordered. Sacrum and heels intact. Patient is on a Centrella Max Air. TT pics to Dr. Parada. Will defer to Dr. Parada for surgical or ENT consult. Will follow peripherally.
[2025-05-18 14:55] LABS: Magnesium 2.0 mg/dl (1.6-2.3)
--- NOTE | 2025-05-18 14:57 | PTOTSP ---
Speech Therapy Evaluation:
Pt with chronic risk factors of dysphagia including hx of RA, however pt without dysphagia/PNA hx. Currently, pt with oral impairments in the setting of scabbing/healing of L oral commissure following prior suturing contributing to reduced oral
opening, range of motion, and strength. Despite this, pt able to compensate with strategic bolus placement on R. No overt s/sx of aspiration.
Recommend:
1. Continue regular solids and thin liquids
2. Meds as tolerated
3. General aspiration precautions
4. CLEARING TUB WORKER to follow to monitor tolerance of current diet level
[2025-05-18 15:35] LABS: Blood Urea Nitrogen 10 mg/dl (7-17); Calcium 8.9 mg/dl (8.4-10.2); Carbon Dioxide 24 mmol/L (22-30); Chloride 95 mmol/L (98-107); Estimated Creatinine Clearance 56 ml/min; Glucose 130 mg/dl (70-99); Potassium 4.6 mmol/L (3.5-5.1); Sodium 128 mmol/L (135-145); eGFR > 60.00
--- NOTE | 2025-05-18 16:25 | CM ---
IA completed with assistance from spouse. Pt requires minimal assistance with showering. Spouse describes that pt has trouble with her balance. NO Hx of HH, SNF or home O2. NO insecurities identified. Confirmed PCP, Rx, insurance and NO drug
coverage.
Pt has a RW and cane but does not currently use them; furniture surfing instead.
Spouse stated that the patient has not had her Xeljanz in a month. [facility] was able to get this medication for free. When they ran out, they called the Dr office for a renewal but they never responded.
PT rec SNF. Spouse stated he was not interested in this recommendation at this time but was willing to read the 5-star Medicare report
Plan: Return home with services vs SNF.
[2025-05-18] MEDS: LOVENOX 40 MG SC (16:39)
[2025-05-18] MEDS: BACITRACIN OINTMENT 1 APPLIC TOPICAL ×2 (16:39→19:48)
[2025-05-18 16:54] LABS: Folate 2.3 ng/ml (2.76-20); Vitamin B12 > 1000 pg/ml (239-931)
[2025-05-19 04:20] VITALS: BP 172/84
[2025-05-19 06:00] VITALS: BMI 17.2
[2025-05-19 07:38] VITALS: BP 195/95
[2025-05-19 07:38] LABS: Ammonia < 9 umol/L (9-30)
[2025-05-19 07:39] LABS: Hematocrit 35.6 % (37.0-47.0); Hemoglobin 13.0 g/dL (12.0-16.0); Mean Corp Hgb Conc. 36.5 g/dL (33.0-37.0); Mean Corpuscular Volume 100.6 fL (81.0-99.0); Platelet Count 166 10^3/uL (130-400); Red Cell Dist. Width 11.5 % (11.5-14.5)
[2025-05-19] MEDS: LOPRESSOR 100 MG PO ×2 (07:45→20:36)
[2025-05-19] MEDS: APRESOLINE 100 MG PO ×2 (07:48→16:12)
[2025-05-19] MEDS: VISBIOME 1 CAP PO (07:49)
[2025-05-19] MEDS: BACITRACIN OINTMENT 1 APPLIC TOPICAL ×2 (07:51→20:36)
[2025-05-19 08:07] LABS: Blood Urea Nitrogen 7 mg/dl (7-17); Calcium 8.5 mg/dl (8.4-10.2); Carbon Dioxide 22 mmol/L (22-30); Chloride 92 mmol/L (98-107); Estimated Creatinine Clearance 55 ml/min; Glucose 118 mg/dl (70-99); Potassium 3.0 mmol/L (3.5-5.1); Sodium 125 mmol/L (135-145); eGFR > 60.00
[2025-05-19] MEDS: ZESTRIL 40 MG PO (11:19)
[2025-05-19 11:21] VITALS: BP 192/92
--- NOTE | 2025-05-19 12:22 | W.PN.HOSP.TC ---
Today's Communication/Plan
-
hyponatremia workup and nephrology consult
monitor BP with TOMER resumed (daily dosing); add Nifedipine. Continue Hydralazine/BB
Assessment / Plan
Assessment / Plan
Assessment:
acute on chronic encephalopathy, chronic per patients
- check MRI brain
- metabolic workup
- PT/OT evals - SNF recommended
- needs formal OP Dementia evaluation
Hyponatremia, acute on chronic
Hypochloremia
- no improvement with NSS
- Urine/osm studies
- Nephrology evaluation
- TSH low, FT4 normal - repeat in 6 weeks
- AM cortisol pending
- monitor BMP
- Nephrology evaluation
Hypokalemia
Hypomagnesemia
- as needed repletion
Weakness/Fatigue from poor oral intake
- recent abx course could be affecting oral intake
- probiotic added
- monitor oral intake
- PT/OT evals - [facility] recommended
Skin Cancer/Lip Cancer s/p Excision on 04/29
- [facility] - Dr. Kaur Alcantara - ENT
- seen 05/09 - suture were removed
- completed 1 week of Augmentin previously
- has appointment Friday this week; Dr. Parada d/w their group's public relations analyst ENT physician who recommended Bacitracin BID
- monitor drainage, monitor fevers
- wound care evaluation
Chronic Leukopenia
Chronic HFpEF
Benign Hypertension
- continue Hydralazine/BB - titrate as needed
- continue Lisinopril 40mg - BID - decrease to daily dosing
- add Nifedipine
Rheumatoid Arthritis
- hold Xeljanz
Low folate level
- oral replacement added
DVT ppx: Lovenox
Code: Full
Anticipated Discharge: > 48 hours
Subjective/Interval History
-
Date of Service: May 19, 2025
remains with poor oral intake
K 3.0
Na 125 despite IVF
denies pain
Objective Data
-
Labs:
Laboratory Results
05/19/25
07:15
WBC 2.8 L
Hgb 13.0
Hct 35.6 L
Plt Count 166
Sodium 125 L
Potassium 3.0 L D
Chloride 92 L
Carbon Dioxide 22
BUN 7
Creatinine 0.4 L
Glucose 118 H
Calcium 8.5
Vital Signs:
Vital Signs
Temp Pulse Resp BP Pulse Ox
97.0 F 70 16 192/92 97
05/19/25 11:21 05/19/25 11:21 05/19/25 11:21 05/19/25 11:21 05/19/25 11:21
I&O
05/18/25 05/19/25 05/20/25
06:59 06:59 06:59
Intake Total 0 / 0
Output Total 700 / 700 200 / 200
Balance -700 / -700 -200 / -200
Physical Exam
-
General: No Apparent Distress
HEENT: Normocephalic, Atraumatic and Other (L facial- skin cancer removed from left cheeck and upper lip, opening on the edge of the wound - scant thin drainage)
Respiratory: Negative Wheezes
Cardiac: Regular Rhythm and S1/S2
GI: Soft and Nontender
Genito-urinary: No Costovertebral Tender
Neuro: AO x 3
Hematologic / Lymphatic: No Lymphadenopathy
Psych: Calm
Data Reviewed
-
Total Time Spent with Patient (in minutes): 42
Labs: Labs Reviewed by me
[2025-05-19] MEDS: KLOR-CON 40 MEQ PO (12:54)
[2025-05-19] MEDS: FOLVITE 1 MG PO (12:54)
--- NOTE | 2025-05-19 14:19 | CM ---
Spoke with patient bedside. Discussed therapy recommendations, patient not interested in skilled rehab at this time, will discuss with spouse. She is agreeable to home care- discussed options.
referral to [facility]N liaison.
Plan: home with VN unless spouse agrees to skilled rehab.
[2025-05-19] MEDS: PROCARDIA XL (EXTENDED RELEASE) 60 MG PO (14:30)
--- NOTE | 2025-05-19 15:19 | VNURNOTE ---
Home Health Liaison met with patient at bedside to discuss [facility] nurse/therapy, visits, schedule and homebound status. Patient is agreeable and understands that visits at home will be 2-3 x per week to assess and teach medical management. Patient
is aware that [facility] will contact them for start of care within a week after discharge from . Provided contact number for [facility].
[facility] referral completed in [facility].
[2025-05-19 15:39] VITALS: BP 185/90
[2025-05-19] MEDS: LOVENOX 40 MG SC (18:06)
--- NOTE | 2025-05-19 18:20 | W.CON.NEPH ---
Consultation
-
Date/Time Consultation Requested: 05/19/25 1016
Date/Time Consultation Performed: 05/19/25 1800
Requesting Provider: Usha Moser
Performing Provider: Marii Avila
Reason for Consultation: Hypoantremia
Medical History
-
Chief Complaint: worsening weakness poor appetite
History of Present Illness:
70y F with PMH significant for hypertension lisinopril, hydralazine, metoprolol, RA on Xeljanz and recent surgery for lip cancer who presents to ED on 05/17 for evaluation of poor PO intake and generalized weakness. Patient underwent surgery on
04/29 at [facility] for 'lip cancer'. Since that time she was not eating / drinking very well at all. Patient denies any significant pain with eating, swallowing, etc.
Patient was seen about one week after surgery for suture removal. She was given Rx for Augmentin liquid and viscous lidocaine at that time which she took for 7 days. states that her appetite significantly decreased following that. On admit
her sodium was at 126, k 2.8. SHe was fluid resuscitated with improvement of sodium upto 128 however today down to 125 hence nephrology consulted. Her potassium still low at 3 too.
PO intake is poor. She remains confused which might be chronic, brain MRI and was neg.
No reported fever or pain. may be knee pain but xray neg. History is limited and most of the history is obtained through records and nursing.
Past Medical History
Hypertension, gastric ulcer, rheumatoid arthritis, herpes zoster, SVT, hypertension, Carlson's esophagus
Past Surgical History: Other (skin cancer surgery)
Social History
Tobacco: Non-Smoker
Alcohol: None
Drug: None
Living: With Family
Family History
Family History: Not Pertinent
Allergies / Home Medications
Allergy/AdvReac Type Severity Reaction Status Date / Time
No Known Allergies Allergy Verified 05/17/25 17:36
�Medication �Instructions �Recorded �Confirmed �Type
hydralazine 100 mg tablet 100 mg PO TID Blood Pressure 03/03/19 05/17/25 History
metoprolol tartrate 100 mg tablet 100 mg PO BID Blood Pressure 03/03/19 05/17/25 History
lisinopril 40 mg tablet 40 mg PO BID Blood Pressure 03/21/23 05/17/25 History
tofacitinib 5 mg tablet (Xeljanz) 5 mg PO BID Antirheumatic 03/21/23 05/17/25 History
alendronate 70 mg tablet 70 mg PO WEEKLY BONE 05/17/25 05/17/25 History
meloxicam 15 mg tablet 15 mg PO DAILY PRN pain 05/17/25 05/17/25 History
Review of Systems
-
Unable to obtain full review of systems at this time due to: Dementia and Acuity
Physical Exam
Vital Signs
Vital Signs
Temp Pulse Resp BP Pulse Ox
97.9 F 73 16 185/90 94
05/19/25 15:39 05/19/25 15:39 05/19/25 15:39 05/19/25 15:39 05/19/25 15:39
Lab Results
WBC 2.8 10^3/uL (4.8-10.8) L 05/19/25 07:15
RBC 3.54 10^6/uL (4.20-5.40) L 05/19/25 07:15
Hgb 13.0 g/dL (12.0-16.0) 05/19/25 07:15
Hct 35.6 % (37.0-47.0) L 05/19/25 07:15
Plt Count 166 10^3/uL (130-400) 05/19/25 07:15
Sodium 125 mmol/L (135-145) L 05/19/25 07:15
Potassium 3.0 mmol/L (3.5-5.1) L D 05/19/25 07:15
Chloride 92 mmol/L (98-107) L 05/19/25 07:15
Carbon Dioxide 22 mmol/L (22-30) 05/19/25 07:15
BUN 7 mg/dl (7-17) 05/19/25 07:15
Creatinine 0.4 mg/dL (0.6-1.0) L 05/19/25 07:15
eGFR > 60.00 05/19/25 07:15
Glucose 118 mg/dl (70-99) H 05/19/25 07:15
Calcium 8.5 mg/dl (8.4-10.2) 05/19/25 07:15
Albumin 4.2 g/dl (3.5-5.0) 05/17/25 17:45
Physical Exam
General: Awake, No Distress and Nontoxic
HEENT: EOMI, Anicteric, No JVD and Other (left face lip sirg -incision healed well, small scabs)
Respiratory: Clear, Normal Excursion and Nonlabored Respirations
Cardiac: S1/S2 and Regular Rate/Rhythm
Breast: Deferred by me
Abdomen: Soft, Nontender and Nondistended
Musculoskeletal: No Cyanosis and No Edema
Skin: No Rash
Neuro: Nonfocal/Grossly Intact
Psych: Other (confused)
Data Reviewed
-
Labs: Labs Reviewed by me and Discussed with Nurse
Assessment/Plan
-
IMP:
acute on chronic encephalopathy, chronic per
Hyponatremia, acute on chronic sodium 127-130 out pt in mar 2025
Hypochloremia
Hypokalemia
Hypomagnesemia
Accelerated HTN
Weakness/Fatigue from poor oral intake
Skin Cancer/Lip Cancer s/p Excision on 04/29
- [facility] - Dr. Kaur Alcantara - ENT
Chronic Leukopenia
Chronic HFpEF
Rheumatoid Arthritis- Xeljanz
Low folate level
Plan:
A/w weakness and fatigue post lip surg recently and decreased po intake
acute on chr hyponatremia, did not respond to IVF, sodium down to 125
U osmo high 509, u na high with ns
suspect SIADH , will try HTS
FR, increase solute intake
TSH is low, normal FT4-monitor
cont to replace other electrolytes -potassium, mg ok post replacement
Bps are high back on home meds-ACEI, BB, hydralzine, procardia added today
she is on multiple meds ofr HTN, may benefit from checking ARR once Aldactone wash out
chr confusion?, MRI neg
d/w nursing
[2025-05-19] MEDS: SODIUM CHLORIDE 3% 250 IV (18:39)
[2025-05-19 19:10] VITALS: BP 154/75
[2025-05-19] MEDS: APRESOLINE PO (22:27)
[2025-05-19 22:44] LABS: Sodium 118 mmol/L (135-145)
[2025-05-19 23:05] VITALS: BP 146/75
[2025-05-20] VITALS (12 sets, daily range): BP systolic 79–190; BP diastolic 42–93; BMI 17.7
[2025-05-20 02:24] LABS: Sodium 121 mmol/L (135-145)
--- NOTE | 2025-05-20 02:56 | PTCARENOTE ---
Addendum entered by Lynn Styles RN 05/20/25 03:20:
pt currently on 3% at 20ml/hr. Will remain on 3%.
Original Note:
Pt had critical lab value of NA 118 at 2223. CONTINUOUS MINER OPERATOR HELPER and sales development consultant Nephrology aware. Order put in for repeat lab draw for around 0200. Na resulted 121 at 0153. CONTINUOUS MINER OPERATOR HELPER and Nephrology updated. No new orders. Call sharif is within reach.
--- NOTE | 2025-05-20 03:28 | W.PN.UPDATE ---
Update Note
Progress Note Update
@ 2200 Na 118-> @ [id number]
Sizing Machine Operator made aware, will continue 3%
BMP AM
[2025-05-20 07:53] LABS: Hematocrit 33.1 % (37.0-47.0); Hemoglobin 12.4 g/dL (12.0-16.0); Mean Corp Hgb Conc. 37.5 g/dL (33.0-37.0); Mean Corpuscular Volume 97.6 fL (81.0-99.0); Platelet Count 162 10^3/uL (130-400); Red Cell Dist. Width 11.4 % (11.5-14.5)
[2025-05-20 08:38] LABS: Blood Urea Nitrogen 9 mg/dl (7-17); Calcium 8.4 mg/dl (8.4-10.2); Carbon Dioxide 22 mmol/L (22-30); Chloride 91 mmol/L (98-107); Estimated Creatinine Clearance 57 ml/min; Glucose 124 mg/dl (70-99); Potassium 3.0 mmol/L (3.5-5.1); Sodium 122 mmol/L (135-145); eGFR > 60.00
[2025-05-20 09:07] LABS: Cortisol, Random 25.5 ug/dl
[2025-05-20] MEDS: APRESOLINE 100 MG PO ×2 (09:36→16:49)
[2025-05-20] MEDS: PROCARDIA XL (EXTENDED RELEASE) 60 MG PO (09:37)
[2025-05-20] MEDS: ZESTRIL 40 MG PO (09:37)
[2025-05-20] MEDS: FOLVITE 1 MG PO (09:37)
[2025-05-20] MEDS: LOPRESSOR 100 MG PO (09:37)
[2025-05-20] MEDS: VISBIOME 1 CAP PO (09:37)
[2025-05-20] MEDS: FLUSH (NSS) 1 FLUSH IV ×3 (09:38→16:50)
[2025-05-20] MEDS: BACITRACIN OINTMENT 1 APPLIC TOPICAL ×2 (09:38→21:05)
--- NOTE | 2025-05-20 11:40 | PTCARENOTE ---
patient sitting chair- pale, sleepy but arousable- BP 79/45- assisted patient back to bed, BP 86/42 manually- patient sleepy but arousable, color improved. denied any symptoms. Dr Parada aware- BP after 5 minutes in bed 108/46, after 10 minutes
110/56- Dr Parada aware- plan of care on going.
--- NOTE | 2025-05-20 12:16 | W.PN.HOSP.TC ---
Today's Communication/Plan
-
follow Nephrology recs
replace K
Assessment / Plan
Assessment / Plan
Assessment:
acute on chronic encephalopathy, chronic per patients
- MRI brain: moderate hyperintensity within the periventricular and deep subcortical white matter, likely related to chronic small vessel ischemic changes
- metabolic workup so far unremarkable
- PT/OT evals - SNF recommended, family wants home/VN
- needs formal OP Dementia evaluation
Hyponatremia, acute on chronic
Hypochloremia
- no improvement with NSS
- TSH low, FT4 normal - repeat in 6 weeks
- AM cortisol normal
- studies indicate SIADH
- continue OFR
- 3% saline per Nephrology
- monitor BMP
Hypokalemia
Hypomagnesemia
- start daily potassium replacement
Weakness/Fatigue from poor oral intake
- recent abx course could be affecting oral intake
- probiotic added
- monitor oral intake
- PT/OT evals - SNF recommended, family wants home/VN
Skin Cancer/Lip Cancer s/p Excision on 04/29
- [facility] - Dr. Kaur Alcantara - ENT
- seen 05/09 - suture were removed
- completed 1 week of Augmentin previously
- has appointment Friday this week; Dr. Parada d/w their group's manager clinical applications ENT physician on 05/18; they recommended Bacitracin BID
- monitor drainage, monitor fevers
- wound care service following
Chronic Leukopenia
Chronic HFpEF
Benign Hypertension
- continue Hydralazine/BB - titrate as needed
- continue Lisinopril 40mg - BID - decrease to daily dosing
- added Nifedipine but with drop in BP today; will hold and reassess, possibly resume Nifedipine and consider stopping Hydralazine - will d/w Nephrology
Rheumatoid Arthritis
- hold Xeljanz
Low folate level
- oral replacement added
DVT ppx: Lovenox
Code: Full
Anticipated Discharge: > 48 hours
Subjective/Interval History
-
Date of Service: May 20, 2025
overnight started on 3% saline with Na 118 - now up to 122
resting comfortably
no new complaints
Objective Data
-
Labs:
Laboratory Results
05/20/25 05/20/25
01:53 07:33
WBC 3.6 L
Hgb 12.4
Hct 33.1 L
Plt Count 162
Sodium 121 L 122 L
Potassium 3.0 L
Chloride 91 L
Carbon Dioxide 22
BUN 9
Creatinine 0.4 L
Glucose 124 H
Calcium 8.4
Vital Signs:
Vital Signs
Temp Pulse Resp BP Pulse Ox
97.5 F 63 18 132/58 98
05/20/25 11:20 05/20/25 11:20 05/20/25 11:20 05/20/25 11:49 05/20/25 11:20
I&O
05/19/25 05/20/25 05/21/25
06:59 06:59 06:59
Intake Total 360 / 360
Output Total 200 / 200 200 / 200
Balance -200 / -200 160 / 160
Physical Exam
-
General: No Apparent Distress
HEENT: Normocephalic, Atraumatic and Other (L facial- skin cancer removed from left cheeck and upper lip, opening on the edge of the wound - scant thin drainage)
Respiratory: Negative Wheezes
Cardiac: Regular Rhythm and S1/S2
Musculoskeletal: No Edema
Neuro: Awake
Psych: Calm and Apparent Dementia
Data Reviewed
-
Total Time Spent with Patient (in minutes): 41
Labs: Labs Reviewed by me
[2025-05-20] MEDS: KCL 40 MEQ PO (14:16)
--- NOTE | 2025-05-20 15:20 | W.PN.NEPH.PH ---
Today's Communication / Plan
-
Hypertonic saline for 250 cc again
Follow-up BMP in a.m.
Assessment/Plan
-
IMP:
acute on chronic encephalopathy, chronic per
Hyponatremia, acute on chronic sodium 127-130 out pt in mar 2025
Hypochloremia
Hypokalemia
Hypomagnesemia
Accelerated HTN
Weakness/Fatigue from poor oral intake
Skin Cancer/Lip Cancer s/p Excision on 04/29
- [facility] - Dr. Kaur Alcantara - ENT
Chronic Leukopenia
Chronic HFpEF
Rheumatoid Arthritis- Xeljanz
Low folate level
Plan:
A/w weakness and fatigue post lip surg recently and decreased po intake
acute on chr hyponatremia, did not respond to IVF, sodium down to 125
U osmo high 509, u na high with ns
suspect chronic SIADH , will try HTS again and if this fails we will try samsca
FR, increase solute intake
TSH is low, normal FT4-monitor
cont to replace other electrolytes -potassium, mg ok post replacement
Bps are high back on home meds-ACEI, BB, hydralzine, procardia added today
she is on multiple meds ofr HTN, may benefit from checking ARR once Aldactone wash out
chr confusion?, MRI neg
d/w nursing
-
-
Date of Service: May 20, 2025
CC / HPI / ROS
-
Chief Complaint:
Hyponatremia
History of Present Illness:
Hyponatremia with modest improvement from 118-122 following hypertonic saline
Hemodynamically stable on multidrug regimen
Review of Systems:
Subjective nonoliguric
No reported chest pain or shortness of breath
Poor p.o. intake
Labs
-
Labs:
WBC 3.6 10^3/uL (4.8-10.8) L 05/20/25 07:33
RBC 3.39 10^6/uL (4.20-5.40) L 05/20/25 07:33
Hgb 12.4 g/dL (12.0-16.0) 05/20/25 07:33
Hct 33.1 % (37.0-47.0) L 05/20/25 07:33
Plt Count 162 10^3/uL (130-400) 05/20/25 07:33
Sodium 122 mmol/L (135-145) L 05/20/25 07:33
Potassium 3.0 mmol/L (3.5-5.1) L 05/20/25 07:33
Chloride 91 mmol/L (98-107) L 05/20/25 07:33
Carbon Dioxide 22 mmol/L (22-30) 05/20/25 07:33
BUN 9 mg/dl (7-17) 05/20/25 07:33
Creatinine 0.4 mg/dL (0.6-1.0) L 05/20/25 07:33
eGFR > 60.00 05/20/25 07:33
Glucose 124 mg/dl (70-99) H 05/20/25 07:33
Calcium 8.4 mg/dl (8.4-10.2) 05/20/25 07:33
Albumin 4.2 g/dl (3.5-5.0) 05/17/25 17:45
Physical Exam
-
Vital Signs:
Vital Signs
Temp Pulse Resp BP Pulse Ox
97.5 F 63 18 132/58 98
05/20/25 11:20 05/20/25 11:20 05/20/25 11:20 05/20/25 11:49 05/20/25 11:20
Cardiovascular:: Regular rate and rhythm
Respiratory:: Bilateral: CTA
Lung Excursion:: Normal
Abdomen:: Nontender and Soft
Bowel Sounds:: Normal
Extremity Edema:: None: Bilateral:
--- NOTE | 2025-05-20 15:38 | PN.CDI ---
CDI
- -
CDI:
Physician Documentation Request
Admit Date: 05/17/25 22:38
Dear Doctor Tal,
Please review the following and provide your response in the progress notes.
Clinical Indicators:
Height: 5 ft 1 inch
Weight: 91lb 9 oz
BMI:17.3
Other Clinical Notes:RD notes include 'underweight'
Please provide an associated diagnosis related to the abnormal BMI
BMI < or = to 19
Underweight
Weight Loss
Cachectic
Anorexia
- BMI is not significant
- Other
Use of terms such as suspected, likely, concern for, or probable (associated with a specific diagnosis that is being evaluated, monitored, or treated as if it exists) are acceptable and can be coded in the inpatient setting, when documented at the
time of discharge.
Thank you,
Penny Kunz RN, BSN
CDI Specialist
tiger text
Please use your independent medical judgment in providing your response.
--- NOTE | 2025-05-20 16:35 | CM ---
Met with pt's to revisit recommendation by PT for SNF. Initially he was resistant but is now open to this possibility as the pt gets closer to discharge. His first preference is HH PT. . referrals placed. does not want to
pt to go to any facility in [place]
Plan: Home with [facility] vs SNF
[2025-05-20] MEDS: SODIUM CHLORIDE 3% 250 IV (16:44)
[2025-05-20] MEDS: LOVENOX 40 MG SC (18:26)
[2025-05-20] MEDS: LOPRESSOR PO (21:12)
[2025-05-20] MEDS: APRESOLINE PO (21:12)
[2025-05-20] MEDS: APRESOLINE 10 MG IV (23:25)
[2025-05-21 03:40] VITALS: BP 163/78
[2025-05-21 06:49] LABS: Hematocrit 31.2 % (37.0-47.0); Hemoglobin 11.6 g/dL (12.0-16.0); Mean Corp Hgb Conc. 37.2 g/dL (33.0-37.0); Mean Corpuscular Volume 101.0 fL (81.0-99.0); Platelet Count 136 10^3/uL (130-400); Red Cell Dist. Width 11.3 % (11.5-14.5)
[2025-05-21 07:14] VITALS: BP 166/84
[2025-05-21 07:58] LABS: Blood Urea Nitrogen 13 mg/dl (7-17); Calcium 8.6 mg/dl (8.4-10.2); Carbon Dioxide 23 mmol/L (22-30); Chloride 94 mmol/L (98-107); Estimated Creatinine Clearance 57 ml/min; Glucose 141 mg/dl (70-99); Potassium 2.9 mmol/L (3.5-5.1); Sodium 129 mmol/L (135-145); eGFR > 60.00
[2025-05-21] MEDS: APRESOLINE 100 MG PO ×3 (08:19→20:38)
[2025-05-21] MEDS: BACITRACIN OINTMENT 1 APPLIC TOPICAL ×2 (08:19→20:38)
[2025-05-21] MEDS: KCL 40 MEQ PO ×2 (08:20→13:16)
[2025-05-21] MEDS: FOLVITE 1 MG PO (08:20)
[2025-05-21] MEDS: LOPRESSOR 100 MG PO ×2 (08:27→20:38)
[2025-05-21] MEDS: ZESTRIL 40 MG PO (08:28)
[2025-05-21] MEDS: VISBIOME 1 CAP PO (08:28)
--- NOTE | 2025-05-21 09:23 | W.PN.HOSP.TC ---
Today's Communication/Plan
-
AM BMP
replace K
monitor BMP
SNF planning
Assessment / Plan
Assessment / Plan
Assessment:
acute on chronic encephalopathy, chronic per patients
- MRI brain: moderate hyperintensity within the periventricular and deep subcortical white matter, likely related to chronic small vessel ischemic changes
- metabolic workup so far unremarkable
- PT/OT evals - SNF recommended, family wants home/VN
- needs formal OP Dementia evaluation
Hyponatremia, acute on chronic
Hypochloremia
- no improvement with NSS
- TSH low, FT4 normal - repeat in 6 weeks
- AM cortisol normal
- studies indicate SIADH
- continue OFR
- 3% saline per Nephrology
- monitor BMP; Na 129 now
Hypokalemia
Hypomagnesemia
- continue daily potassium replacement
Weakness/Fatigue from poor oral intake
- recent abx course could be affecting oral intake
- probiotic added
- monitor oral intake
- PT/OT evals - SNF recommended, family wants home/VN
Skin Cancer/Lip Cancer s/p Excision on 04/29
- [facility] - Dr. Kaur Alcantara - ENT
- seen 05/09 - suture were removed
- completed 1 week of Augmentin previously
- has appointment Friday this week; Dr. Parada d/w their group's risk control field representative ENT physician on 05/18; they recommended Bacitracin BID
- monitor drainage, monitor fevers
- wound care service following
Chronic Leukopenia
Chronic HFpEF
Benign Hypertension
- continue Hydralazine/BB - titrate as needed
- continue Lisinopril 40mg daily
- monitor BP
Rheumatoid Arthritis
- hold Xeljanz
Low folate level
- oral replacement added
Underweight
DVT ppx: Lovenox
Code: Full
Anticipated Discharge: > 48 hours
Subjective/Interval History
-
Date of Service: May 21, 2025
periods of sleepiness, easily arousable
Objective Data
-
Labs:
Laboratory Results
05/21/25
05:40
WBC 3.9 L
Hgb 11.6 L
Hct 31.2 L
Plt Count 136
Sodium 129 L
Potassium 2.9 L
Chloride 94 L
Carbon Dioxide 23
BUN 13
Creatinine 0.5 L
Glucose 141 H
Calcium 8.6
Vital Signs:
Vital Signs
Temp Pulse Resp BP Pulse Ox
98.1 F 83 18 166/84 98
05/21/25 07:14 05/21/25 07:14 05/21/25 07:14 05/21/25 08:27 05/21/25 07:14
I&O
05/20/25 05/21/25 05/22/25
06:59 06:59 06:59
Intake Total 360 / 360 240 / 240 240 / 240
Output Total 200 / 200
Balance 160 / 160 240 / 240 240 / 240
Physical Exam
-
General: No Apparent Distress
HEENT: Normocephalic and Atraumatic
Respiratory: Negative Wheezes
Cardiac: Regular Rhythm and S1/S2
Neuro: Awake
Psych: Calm and Apparent Dementia
Data Reviewed
-
Total Time Spent with Patient (in minutes): 42
Labs: Labs Reviewed by me
--- NOTE | 2025-05-21 09:50 | CM ---
spoke with Gal regarding SNF
CM stated [facility] in [place] accepted the referral, pending bed avail
stated does not want CT facility
PT rec SNF - He states still undecided with VN vs. SNF
also states he ordered a wheelchair for patient
will be visiting later & further discuss
[facility]
PLAN: SNF vs Home with VN
[2025-05-21 11:05] VITALS: BP 138/77
--- NOTE | 2025-05-21 14:15 | W.PN.NEPH.PH ---
Today's Communication / Plan
-
Follow electrolytes and maintain fluid restriction
Assessment/Plan
-
IMP:
acute on chronic encephalopathy, chronic per
Hyponatremia, acute on chronic sodium 127-130 out pt in mar 2025
Hypochloremia
Hypokalemia
Hypomagnesemia
Accelerated HTN
Weakness/Fatigue from poor oral intake
Skin Cancer/Lip Cancer s/p Excision on 04/29
- [facility] - Dr. Kaur Alcantara - ENT
Chronic Leukopenia
Chronic HFpEF
Rheumatoid Arthritis- Xeljanz
Low folate level
Plan:
A/w weakness and fatigue post lip surg recently and decreased po intake
acute on chr hyponatremia, now at 129 after hypertonic given on 05/21/2025
U osmo high 509, u na high with ns
FR, increase solute intake
TSH is low, normal FT4-monitor
cont to replace other electrolytes -potassium, mg ok post replacement
Bps are high back on home meds-ACEI, BB, hydralzine, procardia added today
she is on multiple meds ofr HTN, may benefit from checking ARR once Aldactone wash out
chronic confusion?, MRI neg
d/w nursing
-
-
Date of Service: May 21, 2025
CC / HPI / ROS
-
Chief Complaint:
Hyponatremia
History of Present Illness:
Hyponatremia with modest improvement from 118-129 following hypertonic saline
Hemodynamically stable on multidrug regimen
Review of Systems:
Subjective nonoliguric
No reported chest pain or shortness of breath
Poor p.o. intake but a little improved today
Labs
-
Labs:
WBC 3.9 10^3/uL (4.8-10.8) L 05/21/25 05:40
RBC 3.09 10^6/uL (4.20-5.40) L 05/21/25 05:40
Hgb 11.6 g/dL (12.0-16.0) L 05/21/25 05:40
Hct 31.2 % (37.0-47.0) L 05/21/25 05:40
Plt Count 136 10^3/uL (130-400) 05/21/25 05:40
Sodium 129 mmol/L (135-145) L 05/21/25 05:40
Potassium 2.9 mmol/L (3.5-5.1) L 05/21/25 05:40
Chloride 94 mmol/L (98-107) L 05/21/25 05:40
Carbon Dioxide 23 mmol/L (22-30) 05/21/25 05:40
BUN 13 mg/dl (7-17) 05/21/25 05:40
Creatinine 0.5 mg/dL (0.6-1.0) L 05/21/25 05:40
eGFR > 60.00 05/21/25 05:40
Glucose 141 mg/dl (70-99) H 05/21/25 05:40
Calcium 8.6 mg/dl (8.4-10.2) 05/21/25 05:40
Albumin 4.2 g/dl (3.5-5.0) 05/17/25 17:45
Physical Exam
-
Vital Signs:
Vital Signs
Temp Pulse Resp BP Pulse Ox
97.1 F 68 14 138/77 98
05/21/25 11:05 05/21/25 11:05 05/21/25 11:05 05/21/25 11:05 05/21/25 11:05
Cardiovascular:: Regular rate and rhythm
Respiratory:: Bilateral: CTA
Lung Excursion:: Normal
Abdomen:: Nontender and Soft
Bowel Sounds:: Normal
Extremity Edema:: None: Bilateral:
[2025-05-21 15:10] VITALS: BP 144/69
[2025-05-21] MEDS: LOVENOX 40 MG SC (17:17)
[2025-05-21 19:34] VITALS: BP 199/96
[2025-05-21 23:30] VITALS: BP 229/109
[2025-05-21] MEDS: APRESOLINE 10 MG IV (23:59)
[2025-05-22] VITALS (8 sets, daily range): BP systolic 109–181; BP diastolic 65–97; BMI 17.7
[2025-05-22] MEDS: APRESOLINE 10 MG IV (05:50)
[2025-05-22 06:04] LABS: Hematocrit 32.1 % (37.0-47.0); Hemoglobin 11.8 g/dL (12.0-16.0); Mean Corp Hgb Conc. 36.8 g/dL (33.0-37.0); Mean Corpuscular Volume 101.3 fL (81.0-99.0); Platelet Count 137 10^3/uL (130-400); Red Cell Dist. Width 11.3 % (11.5-14.5)
[2025-05-22 06:29] LABS: Blood Urea Nitrogen 18 mg/dl (7-17); Calcium 9.3 mg/dl (8.4-10.2); Carbon Dioxide 26 mmol/L (22-30); Chloride 98 mmol/L (98-107); Estimated Creatinine Clearance 57 ml/min; Glucose 135 mg/dl (70-99); Potassium 3.7 mmol/L (3.5-5.1); Sodium 131 mmol/L (135-145); eGFR > 60.00
[2025-05-22] MEDS: VISBIOME 1 CAP PO (09:44)
[2025-05-22] MEDS: LOPRESSOR 100 MG PO ×2 (09:44→19:48)
[2025-05-22] MEDS: APRESOLINE 100 MG PO ×3 (09:45→21:23)
[2025-05-22] MEDS: BACITRACIN OINTMENT 1 APPLIC TOPICAL ×2 (09:45→19:48)
[2025-05-22] MEDS: KCL 40 MEQ PO (09:45)
[2025-05-22] MEDS: FOLVITE 1 MG PO (09:46)
[2025-05-22] MEDS: ZESTRIL 40 MG PO (09:46)
[2025-05-22] MEDS: PROCARDIA XL (EXTENDED RELEASE) 30 MG PO (09:49)
[2025-05-22] MEDS: FLUSH (NSS) 1 FLUSH IV (09:49)
[2025-05-22 11:58] LABS: Vitamin B1, Whole Blood 50 nmol/L (70-180)
--- NOTE | 2025-05-22 12:13 | W.PN.NEPH.PH ---
Today's Communication / Plan
-
Observe on fluid restriction
Follow BMP
Serum sodium up to 131 which is within her baseline
Assessment/Plan
-
IMP:
acute on chronic encephalopathy, chronic per
Hyponatremia, acute on chronic sodium 127-130 out pt in mar 2025
Hypochloremia
Hypokalemia
Hypomagnesemia
Accelerated HTN
Weakness/Fatigue from poor oral intake
Skin Cancer/Lip Cancer s/p Excision on 04/29
- [facility] - Dr. Kaur Alcantara - ENT
Chronic Leukopenia
Chronic HFpEF
Rheumatoid Arthritis- Xeljanz
Low folate level
Plan:
A/w weakness and fatigue post lip surg recently and decreased po intake
acute on chronic hyponatremia, now at 131 after hypertonic given on 05/20/2025
U osmo high 509, u na high with ns
FR, increase solute intake
TSH is low, normal FT4-monitor
cont to replace other electrolytes -potassium, mg ok post replacement
Bps are high back on home meds-ACEI, BB, hydralzine, procardia
she is on multiple meds ofr HTN, may benefit from checking ARR once Aldactone wash out
chronic confusion?, MRI neg
d/w nursing
-
-
Date of Service: May 22, 2025
CC / HPI / ROS
-
Chief Complaint:
Hyponatremia
History of Present Illness:
Hyponatremia with modest improvement from 118-131 following hypertonic saline on 05/20/2025
Hemodynamically stable on multidrug regimen
Review of Systems:
Subjective nonoliguric
No reported chest pain or shortness of breath
Poor p.o. intake but a little improved today
Labs
-
Labs:
WBC 3.3 10^3/uL (4.8-10.8) L 05/22/25 05:38
RBC 3.17 10^6/uL (4.20-5.40) L 05/22/25 05:38
Hgb 11.8 g/dL (12.0-16.0) L 05/22/25 05:38
Hct 32.1 % (37.0-47.0) L 05/22/25 05:38
Plt Count 137 10^3/uL (130-400) 05/22/25 05:38
Sodium 131 mmol/L (135-145) L 05/22/25 05:38
Potassium 3.7 mmol/L (3.5-5.1) D 05/22/25 05:38
Chloride 98 mmol/L (98-107) 05/22/25 05:38
Carbon Dioxide 26 mmol/L (22-30) 05/22/25 05:38
BUN 18 mg/dl (7-17) H 05/22/25 05:38
Creatinine 0.5 mg/dL (0.6-1.0) L 05/22/25 05:38
eGFR > 60.00 05/22/25 05:38
Glucose 135 mg/dl (70-99) H 05/22/25 05:38
Calcium 9.3 mg/dl (8.4-10.2) 05/22/25 05:38
Albumin 4.2 g/dl (3.5-5.0) 05/17/25 17:45
Physical Exam
-
Vital Signs:
Vital Signs
Temp Pulse Resp BP Pulse Ox
98.1 F 87 20 109/65 96
05/22/25 11:00 05/22/25 11:00 05/22/25 11:00 05/22/25 11:00 05/22/25 11:00
Cardiovascular:: Regular rate and rhythm
Respiratory:: Bilateral: CTA
Lung Excursion:: Normal
Abdomen:: Nontender and Soft
Bowel Sounds:: Normal
Extremity Edema:: None: Bilateral:
Other Findings::
Cachectic chronically ill-appearing
HEENT: Mouth wound with eschar post surgery
--- NOTE | 2025-05-22 14:13 | W.PN.HOSP.TC ---
Today's Communication/Plan
-
DC planning to SNF
Assessment / Plan
Assessment / Plan
Assessment:
acute on chronic encephalopathy, chronic per patients
- MRI brain: moderate hyperintensity within the periventricular and deep subcortical white matter, likely related to chronic small vessel ischemic changes
- metabolic workup so far unremarkable
- PT/OT evals - SNF recommended
- needs formal OP Dementia evaluation
Hyponatremia, acute on chronic
Hypochloremia
- no improvement with NSS
- TSH low, FT4 normal - repeat in 6 weeks
- AM cortisol normal
- studies indicate SIADH
- continue OFR
- 3% saline per Nephrology
- monitor BMP; Na 131 now
Hypokalemia
Hypomagnesemia
- continue daily potassium replacement
Weakness/Fatigue from poor oral intake
- recent abx course could be affecting oral intake
- probiotic added
- monitor oral intake
- PT/OT evals - SNF recommended, family wants home/VN
Skin Cancer/Lip Cancer s/p Excision on 04/29
- [facility] - Dr. Kaur Alcantara - ENT
- seen 05/09 - suture were removed
- completed 1 week of Augmentin previously
- has appointment Friday this week; Dr. Parada d/w their group's seasonal warehouse associate ENT physician on 05/18; they recommended Bacitracin BID
- monitor drainage, monitor fevers
- wound care service following
Chronic Leukopenia
Chronic HFpEF
Benign Hypertension
- continue Hydralazine/BB - titrate as needed
- continue Lisinopril 40mg daily
- monitor BP
Rheumatoid Arthritis
- hold Xeljanz
Low folate level
- oral replacement added
Underweight
DVT ppx: Lovenox
Code: Full
Anticipated Discharge: 24 - 48 hours
Subjective/Interval History
-
Date of Service: May 22, 2025
resting comfortably, no new complaints at present
Objective Data
-
Labs:
Laboratory Results
05/22/25
05:38
WBC 3.3 L
Hgb 11.8 L
Hct 32.1 L
Plt Count 137
Sodium 131 L
Potassium 3.7 D
Chloride 98
Carbon Dioxide 26
BUN 18 H
Creatinine 0.5 L
Glucose 135 H
Calcium 9.3
Vital Signs:
Vital Signs
Temp Pulse Resp BP Pulse Ox
98.1 F 87 20 109/65 96
05/22/25 11:00 05/22/25 11:00 05/22/25 11:00 05/22/25 11:00 05/22/25 11:00
I&O
05/21/25 05/22/25 05/23/25
06:59 06:59 06:59
Intake Total 240 / 240 600 / 600
Balance 240 / 240 600 / 600
Physical Exam
-
General: No Apparent Distress
HEENT: Normocephalic, Atraumatic and Other (L facial- skin cancer removed from left cheeck and upper lip, opening on the edge of the wound - scant thin drainage)
Respiratory: Negative Wheezes
Cardiac: Regular Rhythm and S1/S2
GI: Soft
Neuro: Awake
Psych: Apparent Dementia
Data Reviewed
-
Total Time Spent with Patient (in minutes): 42
Labs: Labs Reviewed by me
--- NOTE | 2025-05-22 15:55 | PTCARENOTE ---
Pt drowsy but arousable; alert, oriented to self when awake. JOLLY very slowly; legs weak, does not assist with care. Pt non-verbal, occ mouths words, nods head 'yes' and 'no' to some questions. Deneis discomfort. Follows simple commands. VSS, BP
currently 166/88. Telemetry:NSR with PAC's. On room air- pulse ox 98%, no SOB noted. Abd soft, rounded, appetite very poor; will take PO meds with much encouragement; shakes head 'no' when asked if she would like to eat. Oral intake oozes out of
left lip/cheek wound. Incont urine. Resting in bed at present. Will continue to monitor.
[2025-05-22] MEDS: LOVENOX 40 MG SC (18:19)
[2025-05-23] VITALS (8 sets, daily range): BP systolic 117–194; BP diastolic 76–108; BMI 16.7
[2025-05-23 08:13] LABS: Hematocrit 35.9 % (37.0-47.0); Hemoglobin 13.1 g/dL (12.0-16.0); Mean Corp Hgb Conc. 36.5 g/dL (33.0-37.0); Mean Corpuscular Volume 102.3 fL (81.0-99.0); Platelet Count 161 10^3/uL (130-400); Red Cell Dist. Width 11.7 % (11.5-14.5)
[2025-05-23] MEDS: APRESOLINE PO ×4 (08:40→21:42)
[2025-05-23] MEDS: LOPRESSOR PO ×3 (08:40→19:56)
[2025-05-23] MEDS: ZESTRIL PO ×2 (08:40→09:25)
[2025-05-23 08:51] LABS: Blood Urea Nitrogen 21 mg/dl (7-17); Calcium 10.2 mg/dl (8.4-10.2); Carbon Dioxide 25 mmol/L (22-30); Chloride 101 mmol/L (98-107); Estimated Creatinine Clearance 57 ml/min; Glucose 140 mg/dl (70-99); Potassium 4.1 mmol/L (3.5-5.1); Sodium 133 mmol/L (135-145); eGFR > 60.00
--- NOTE | 2025-05-23 09:20 | W.PN.HOSP.TC ---
Today's Communication/Plan
-
Add clonidine patch
Assessment / Plan
Assessment / Plan
Assessment:
acute on chronic encephalopathy, chronic per patients
- MRI brain: moderate hyperintensity within the periventricular and deep subcortical white matter, likely related to chronic small vessel ischemic changes
- metabolic workup so far unremarkable
- PT/OT evals - SNF recommended
- needs formal OP Dementia evaluation
Hyponatremia, acute on chronic
Hypochloremia
- no improvement with NSS
- TSH low, FT4 normal - repeat in 6 weeks
- AM cortisol normal
- studies indicate SIADH
- continue OFR
- 3% saline per Nephrology
- monitor BMP; Na 131 now
Hypokalemia
Hypomagnesemia
- continue daily potassium replacement
Weakness/Fatigue from poor oral intake
- recent abx course could be affecting oral intake
- probiotic added
- monitor oral intake
- PT/OT evals - SNF recommended, family wants home/VN
Skin Cancer/Lip Cancer s/p Excision on 04/29
- [facility] - Dr. Kaur Alcantara - ENT
- seen 05/09 - suture were removed
- completed 1 week of Augmentin previously
- has appointment Friday this week; Dr. Parada d/w their group's manager utilization management ENT physician on 05/18; they recommended Bacitracin BID
- monitor drainage, monitor fevers
- wound care service following
Chronic Leukopenia
Chronic HFpEF
Benign Hypertension
- continue Hydralazine/BB - titrate as needed
- continue Lisinopril 40mg daily
Add amlodipine
- monitor BP
Rheumatoid Arthritis
- hold Xeljanz
Low folate level
- oral replacement added
Underweight
DVT ppx: Lovenox
Code: Full
Total time spent to see the patient, examine the patient, review data and lab results, discuss treatment plan with patient, nursing staff around 55 minutes�
Anticipated Discharge: > 48 hours
Subjective/Interval History
-
Date of Service: May 23, 2025
Objective Data
-
Labs:
Laboratory Results
05/23/25 05/23/25
07:53 07:54
WBC 3.0 L
Hgb 13.1
Hct 35.9 L
Plt Count 161
Sodium 133 L
Potassium 4.1
Chloride 101
Carbon Dioxide 25
BUN 21 H
Creatinine 0.6
Glucose 140 H
Calcium 10.2
Vital Signs:
Vital Signs
Temp Pulse Resp BP Pulse Ox
98.6 F 92 16 189/96 97
05/23/25 07:20 05/23/25 07:20 05/23/25 07:20 05/23/25 07:20 05/23/25 07:20
I&O
05/22/25 05/23/25 05/24/25
06:59 06:59 06:59
Intake Total 600 / 600 100 / 100
Balance 600 / 600 100 / 100
[2025-05-23] MEDS: KCL PO ×2 (09:24→17:30)
[2025-05-23] MEDS: VISBIOME PO ×2 (09:24→17:31)
[2025-05-23] MEDS: FOLVITE PO ×2 (09:24→17:30)
[2025-05-23] MEDS: BACITRACIN OINTMENT 1 APPLIC TOPICAL ×2 (09:25→20:36)
--- NOTE | 2025-05-23 10:08 | CM ---
Addendum entered by Marimar Alonso 05/24/25 16:21:
UPdated spouse on accepting SNF, he has chosen [facility]. [facility] have been notified of their interest. they have also been updated on the patient's current status: medically unstable and CM will update them when a discharge date
is known.
Pt now has a feeding tube; pulmonary and cardiology are now consulted.
Plan: TBD.
Addendum entered by Marimar Alonso 05/23/25 12:20:
Dr Guerrero stated the pt's Xeljanz will be held while she is at the SNF.
Addendum entered by Marimar Alonso 05/23/25 10:18:
Updated Clinical sent to [facility]. Made them aware of possible DC today or tomorrow.
Original Note:
Reviewed chart. Went to visit pt, she is currently sleeping. CM spoke with spouse and he has acknowledged that he cannot take care of his at home in her 'current state'. He has decided he would like her to go to [facility]. Anticipate DC today or
tomorrow. Will check on bed availability.
Plan: [facility] when medically stable.
[2025-05-23] MEDS: CATAPRES-TTS-1 0.1 MG TRANSDERM (12:17)
--- NOTE | 2025-05-23 12:53 | W.PN.NEPH.PH ---
Today's Communication / Plan
-
follow BMP
Assessment/Plan
-
IMP:
acute on chronic encephalopathy, chronic per
Hyponatremia, acute on chronic sodium 127-130 out pt in mar 2025
Hypochloremia
Hypokalemia
Hypomagnesemia
Accelerated HTN
Weakness/Fatigue from poor oral intake
Skin Cancer/Lip Cancer s/p Excision on 04/29
- [facility] - Dr. Kaur Alcantara - ENT
Chronic Leukopenia
Chronic HFpEF
Rheumatoid Arthritis- Xeljanz
Low folate level
Plan:
not volume depleted
started catapres patch today
no IVF today, may need to reconsider tomorrow if poor po intake continues, though that would be a larger issue
prn hydralazine IV
follow BMP
-
-
Date of Service: May 23, 2025
CC / HPI / ROS
-
Chief Complaint:
Hyponatremia
History of Present Illness:
Na up to 133
Hemodynamically stable on multidrug regimen
Review of Systems:
grunts, but no conversation
does not track with eyes
takes meds
Labs
-
Labs:
WBC 3.0 10^3/uL (4.8-10.8) L 05/23/25 07:54
RBC 3.51 10^6/uL (4.20-5.40) L 05/23/25 07:54
Hgb 13.1 g/dL (12.0-16.0) 05/23/25 07:54
Hct 35.9 % (37.0-47.0) L 05/23/25 07:54
Plt Count 161 10^3/uL (130-400) 05/23/25 07:54
Sodium 133 mmol/L (135-145) L 05/23/25 07:53
Potassium 4.1 mmol/L (3.5-5.1) 05/23/25 07:53
Chloride 101 mmol/L (98-107) 05/23/25 07:53
Carbon Dioxide 25 mmol/L (22-30) 05/23/25 07:53
BUN 21 mg/dl (7-17) H 05/23/25 07:53
Creatinine 0.6 mg/dL (0.6-1.0) 05/23/25 07:53
eGFR > 60.00 05/23/25 07:53
Glucose 140 mg/dl (70-99) H 05/23/25 07:53
Calcium 10.2 mg/dl (8.4-10.2) 05/23/25 07:53
Albumin 4.2 g/dl (3.5-5.0) 05/17/25 17:45
Physical Exam
-
Vital Signs:
Vital Signs
Temp Pulse Resp BP Pulse Ox
98.0 F 101 16 194/108 97
05/23/25 11:10 05/23/25 12:17 05/23/25 11:10 05/23/25 12:17 05/23/25 11:10
Cardiovascular:: Regular rate and rhythm
Respiratory:: Bilateral: Coarse
Lung Excursion:: Normal
Abdomen:: Nontender and Soft
Bowel Sounds:: Normal
Extremity Edema:: None: Bilateral:
[2025-05-23] MEDS: D5/0.9% SODIUM CHLORIDE 1000 IV (14:11)
[2025-05-23 15:10] LABS: Urine Character Clear (Clear)
[2025-05-23 15:16] LABS: Urine Squamous Cell 0-2 /LPF (Few)
[2025-05-23] MEDS: LOVENOX SC (17:31)
[2025-05-23] MEDS: APRESOLINE 10 MG IV (23:47)
[2025-05-24] VITALS (7 sets, daily range): BP systolic 128–186; BP diastolic 60–97; BMI 16.6
[2025-05-24] MEDS: D5/0.9% SODIUM CHLORIDE 1000 IV ×2 (02:22→13:39)
--- NOTE | 2025-05-24 06:33 | PTCARENOTE ---
Pt with no output since straight cath at 1430. Bladder scanned at 2130 for 84ml. Scanned again at 0245 for 146ml, and again at 0630 for 219ml. SCALEMAKER made aware. Pt has NSS @ 100ml/hr. No new orders at this time. Patient resting in bed with call sharif
within reach.
[2025-05-24 07:14] LABS: Glucose - Point of Care 128 mg/dl (70-99)
[2025-05-24] MEDS: LOPRESSOR 5 MG IV ×2 (07:21→12:33)
[2025-05-24 07:40] LABS: Hematocrit 34.5 % (37.0-47.0); Hemoglobin 12.4 g/dL (12.0-16.0); Mean Corp Hgb Conc. 35.9 g/dL (33.0-37.0); Mean Corpuscular Volume 103.3 fL (81.0-99.0); Platelet Count 140 10^3/uL (130-400); Red Cell Dist. Width 11.7 % (11.5-14.5)
[2025-05-24] MEDS: OFIRMEV 100 IV (08:11)
[2025-05-24] MEDS: BACITRACIN OINTMENT 1 APPLIC TOPICAL ×2 (08:11→20:58)
[2025-05-24] MEDS: VISBIOME PO (08:12)
[2025-05-24] MEDS: PROTONIX IV 40 MG IV (08:12)
[2025-05-24] MEDS: NSS (PRESERVATIVE FREE) 10 ML IV (08:12)
[2025-05-24 08:16] LABS: Troponin I 0.066 ng/ml
--- NOTE | 2025-05-24 08:30 | W.PN.HOSP.TC ---
Today's Communication/Plan
-
.
Assessment / Plan
Assessment / Plan
Assessment:
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
Around 3 cm in right upper chest seen on chest x-ray ( was done for NG placement)
I discussed with , he was told by ENT doctor Dr Oliver about(spot on chest) when they did outpatient CAT scan of the neck for lip cancer preop.
Patient has history of tobacco use.
No allergy to IV contrast. Will do CT chest with contrast and subsequent oncology consultation
This can explain lethargy and hyponatremia
# cute on chronic encephalopathy,
Discussed with at bedside. Patient started to decline rapidly after lip surgery and of March this year
Declining to eat and fighting with her about feeding
Currently, patient is lethargic and unable to tolerate oral diet with high risk of aspiration. Also with recent lip surgery preventing patient from eating/chewing
Has been agreed to feeding tube. Will try Dobbhoff and advance. Goal of care was discussed with and she remains full code for now, okay to feeding tube. We can give her a chance with feeding but still concerning this is a rapid decline of
underlying dementia
- MRI brain: moderate hyperintensity within the periventricular and deep subcortical white matter, likely related to chronic small vessel ischemic changes
- metabolic workup so far unremarkable
- PT/OT evals - SNF recommended
- needs formal OP Dementia evaluation
Hyponatremia, acute on chronic
Hypochloremia
Improved
- TSH low, FT4 normal -
- AM cortisol normal
- studies indicate SIADH
- 3% saline per Nephrology
Status post
Hypokalemia
Hypomagnesemia
- continue daily potassium replacement as needed
# uncontrolled BP due to inability to take BP medications orally
change to IV route for now
# Mildly positive troponin with nonspecific EKG changes. Seems consistent with nonischemic myocardial injury secondary to tachycardia. No history of chest pain. No history of coronary disease. History of smoking and uncontrolled hypertension.
Trend troponin. Order echo. Consult cardiology
# Failure to thrive. Known to have mild dementia prior to lip surgery in March 2025
Skin Cancer/Lip Cancer s/p Excision on 04/29
- [facility] - Dr. Kaur Alcantara - ENT
- seen 05/09 - suture were removed
- completed 1 week of Augmentin previously
- has appointment Friday this ; Dr. Parada d/w their group's inbound sales consultant ENT physician on 05/18; they recommended Bacitracin BID
- monitor drainage, monitor fevers
- wound care service following
Chronic Leukopenia
Chronic HFpEF
Rheumatoid Arthritis
- hold Xeljanz
Low folate level
- oral replacement added
Underweight
DVT ppx: Lovenox
Code: Full
Total time spent to see the patient, examine the patient, review data and lab results, discuss treatment plan with patient, nursing staff around 55 minutes�
Anticipated Discharge: > 48 hours
Subjective/Interval History
-
Date of Service: May 24, 2025
Still lethargic and not engaged in her care
receiving IVF over night
Could not get oral pills due to lethargy
Her BP and HR are high
Objective Data
-
Labs:
Laboratory Results
05/24/25
07:23
WBC 3.6 L
Hgb 12.4
Hct 34.5 L
Plt Count 140
Sodium Pending
Potassium Pending
Chloride Pending
Carbon Dioxide Pending
BUN Pending
Creatinine Pending
Glucose Pending
Calcium Pending
Vital Signs:
Vital Signs
Temp Pulse Resp BP Pulse Ox
98.5 F 89 16 152/74 98
05/24/25 03:20 05/24/25 08:25 05/24/25 03:20 05/24/25 08:25 05/24/25 03:20
I&O
05/23/25 05/24/25 05/25/25
06:59 06:59 06:59
Intake Total 100 / 100 0 / 0
Output Total 650 / 650
Balance 100 / 100 -650 / -650
[2025-05-24 08:46] LABS: Blood Urea Nitrogen 18 mg/dl (7-17); Calcium 9.5 mg/dl (8.4-10.2); Carbon Dioxide 23 mmol/L (22-30); Chloride 109 mmol/L (98-107); Estimated Creatinine Clearance 53 ml/min; Glucose 146 mg/dl (70-99); Potassium 3.3 mmol/L (3.5-5.1); Sodium 137 mmol/L (135-145); eGFR > 60.00
[2025-05-24] MEDS: ASPIRIN 300 MG RECTAL (09:54)
--- NOTE | 2025-05-24 10:31 | CON.CAR ---
Addendum entered and electronically signed by Ronni Rhoades MD 05/24/25 11:24:
I saw and examined the patient.
The Nursing Program Manager's note was reviewed and I agree with the note.
Comment:
GEN: No distress, awake
HEENT: supple, anicteric, + wound
LUNGS: CTA, no wheezes/rales
CV: Reg, S1/S2, 1/6 syst LSB, no gallop
ABD: soft, BS+, NT/ND
EXT: No edema
NEURO: Gross non-focal
SKIN: facial wound
Plan:
70-year-old female with recent left head and neck cancer surgery April 29, 2025, SVT, hyponatremia, hypertension, alcohol/tobacco use and possible mild dementia presents for failure to thrive and inability to tolerate oral food or medication. She
was hospitalized 1 week ago. Since then she is having bursts of tachycardia and a cardia troponin was checked which was 0.06. The patient denies chest pains but offers very little history. The history is obtained through her . She has
been getting Lopressor 5 mg IV every 6.
EKG with sinus tachycardia and anterolateral ST depression. fitter / welder was reviewed which revealed sinus tachycardia and multifocal atrial tachycardia.
Blood pressure continues to be very labile and somewhat elevated. The patient continues to be in pain from her procedure.
Recommend check echocardiogram and trend cardiac troponins.
I suspect this is nonischemic myocardial injury due to sinus tachycardia/multifocal atrial tachycardia.
Continue pain control. Dobbhoff now placed in would restart Lopressor 100 mg p.o. twice daily. Would also restart lisinopril.
Add aspirin 81 mg daily. I would recommend conservative therapy from a cardiac standpoint. With her comorbidities she clearly could have some level of coronary artery disease but at this point I would continue to treat her conservatively.
Original Note:
Consultation
Consultation Request
Date/Time Consultation Requested: 05/24/2025
Date/Time Consultation Performed: 05/24/2025
Requesting Provider: Dr. Guerrero
Performing Provider: Dr. Rhoades
Reason for Consultation: Abnormal ECG and elevated troponin
Medical History
-
History of Present Illness:
Patient was admitted with generalized weakness and failure to thrive back on 05/17/2025 and cardiology is now consulted on 05/24/2025 for rapid heart rate, abnormal ECG and elevated troponin. Patient's is sitting bedside and relays entire
HPI. Patient had Moh's surgery for a left cheek skin cancer at [facility] 04/29/2025. The patient's does not recall the details of that procedure, but thinks they may have spent the night in the hospital and that sedation may
have been used because the patient was told not to drive for 24 hours after the procedure. Upon return to home the patient had decreased oral intake, she stopped eating solid food, then she stopped eating broth and then she stopped taking any of
her oral medications and after 2 weeks the patient's called 911 because she was too weak to even stand up and get to the car. Additionally there was some concern about changes in mental status that might be more acute on chronic. There is
a concern for dementia that was raised by the patient's and other family prompting recommendation from the PCP for dementia evaluation, but that happened at about the same time that she was diagnosed with a left cheek skin cancer and so they
opted to proceed with the skin cancer surgery first. Patient has a history of SVT and was seen in consultation by cardiology back in 2013, but she always declined outpatient follow-up with cardiology. The patient has continued to follow with her
PCP that she has had for decades associated with [address] [place] [address] and she is on a regimen to manage SVT and HTN that includes hydralazine 100 mg TID, lisinopril 40 mg BID and Lopressor 100 mg BID. Patient's says that she has chronic
hyponatremia. Patient's also reports a history of of rheumatoid arthritis and her usual dosing of Xeljanz has been interrupted over the last month because she ran out of her prescription and did not get a callback from the doctor's office.
Cardiology specifically consulted today for new onset tachycardia seen on telemetry monitoring. Looks like MAT or possibly sinus tachycardia with PACs. This prompted an ECG that shows inferior and anterolateral ST changes. Troponin level was
checked and initial troponin was 0.066. Patient has no complaints, she opens her eyes when talking near her or touching her, but does not respond in any way.
PMH:
s/p left cheek skin cancer surgery 04/29/25
h/o SVT
Chronic hyponatremia
h/o GI bleed and EtOH use disorder 2013
HTN
RA
h/o Lyme disease
h/o tobacco use/smoking
Outpatient work up for possible dementia
Past Medical History
Past Medical History: Other (In HPI)
Past Surgical History: Other (Left cheek and lip cancer resection at [facility] 04/29/2025)
Social History
Tobacco: Former Smoker
Alcohol: Former (Patient needs to have EtOH use disorder, but abstinent for years)
Drug: None
Personal:
Living: With Family
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
Family History
Family History: CAD (Father with PA in his 40s and 50s)
Allergies / Home Medications
Allergy/AdvReac Type Severity Reaction Status Date / Time
No Known Allergies Allergy Verified 05/17/25 17:36
�Medication �Instructions �Recorded �Confirmed �Type
hydralazine 100 mg tablet 100 mg PO TID Blood Pressure 03/03/19 05/17/25 History
metoprolol tartrate 100 mg tablet 100 mg PO BID Blood Pressure 03/03/19 05/17/25 History
lisinopril 40 mg tablet 40 mg PO BID Blood Pressure 03/21/23 05/17/25 History
tofacitinib 5 mg tablet (Xeljanz) 5 mg PO BID Antirheumatic 03/21/23 05/17/25 History
alendronate 70 mg tablet 70 mg PO WEEKLY BONE 05/17/25 05/17/25 History
meloxicam 15 mg tablet 15 mg PO DAILY PRN pain 05/17/25 05/17/25 History
Review of Systems
-
History Source: Family ( at bedside contributing all HPI and ROS)
All other systems: Negative unless noted
Physical Exam
Vital Signs
Temp Pulse Resp BP Pulse Ox
98.0 F 89 20 152/74 97
05/24/25 07:20 05/24/25 08:25 05/24/25 07:20 05/24/25 08:25 05/24/25 07:20
GEN: NAD. Awakens to conversation, but does not speak. Unable to assess orientation
HEENT: EOMI, dry MM, left cheek eschar without malodor
LUNGS: RA. Clear anterolaterally without wheeze
CV: SR on telemetry. Reg, S1/S2, no murmur
ABD: Dobbhoff tube in place, no tube feed actively running. ND
EXT: No edema B/L LE
NEURO: No focal or lateralizing weakness
SKIN: No rash
Lab Results
05/24/25 07:23
05/24/25 07:23
Troponin I 0.066 ng/ml H* 05/24/25 07:23
Impression / Plan
-
PCP: Dr. Eugenia Cedeño
Cardiology: Previously evaluated by [facility] cardiology-[place] location, but never followed up in the office
Impression:
Admitted with decreased oral intake, generalized weakness and change in mental status 05/17/2025
Acute on chronic encephalopathy
MAT vs sinus tachycardia with PACs seen on telemetry 05/24/2025
h/o SVT
Abnormal ECG
Elevated troponin
Acute on chronic hyponatremia
h/o GI bleed and EtOH use disorder 2013
HTN
RA
h/o Lyme disease
h/o tobacco use/smoking
Echo 03/21/2023: EF 65 to 70%, normal wall motion, mild concentric LVH, stage II diastolic dysfunction, normal RV size and function, mild to moderate aortic regurgitation, PAP 32 mmHg
Echo 05/24/2025: Study pending
Plan:
-Patient was admitted with generalized weakness and failure to thrive back on 05/17/2025 and cardiology is now consulted on 05/24/2025 for rapid heart rate, abnormal ECG and elevated troponin. Patient's is sitting bedside and relays entire
HPI. Patient had Moh's surgery for a left cheek skin cancer at [facility] 04/29/2025. The patient's does not recall the details of that procedure, but thinks they may have spent the night in the hospital and that sedation may
have been used because the patient was told not to drive for 24 hours after the procedure. Upon return to home the patient had decreased oral intake, she stopped eating solid food, then she stopped eating broth and then she stopped taking any of
her oral medications and after 2 weeks the patient's called 911 because she was too weak to even stand up and get to the car. Additionally there was some concern about changes in mental status that might be more acute on chronic. There is
a concern for dementia that was raised by the patient's and other family prompting recommendation from the PCP for dementia evaluation, but that happened at about the same time that she was diagnosed with a left cheek skin cancer and so they
opted to proceed with the skin cancer surgery first. Patient has a history of SVT and was seen in consultation by cardiology back in 2013, but she always declined outpatient follow-up with cardiology. The patient has continued to follow with her
PCP that she has had for decades associated with [address] [place] [address] and she is on a regimen to manage SVT and HTN that includes hydralazine 100 mg TID, lisinopril 40 mg BID and Lopressor 100 mg BID. Patient's says that she has chronic
hyponatremia. Patient's also reports a history of of rheumatoid arthritis and her usual dosing of Xeljanz has been interrupted over the last month because she ran out of her prescription and did not get a callback from the doctor's office.
Cardiology specifically consulted today for new onset tachycardia seen on telemetry monitoring. Looks like MAT or possibly sinus tachycardia with PACs. This prompted an ECG that shows inferior and anterolateral ST changes. Troponin level was
checked and initial troponin was 0.066. Patient has no complaints, she opens her eyes when talking near her or touching her, but does not respond in any way.
-ECG reviewed by me is MAT or sinus tachycardia with PACs with inferior and anterolateral ST depressions
-Initial troponin 0.066 and will trend to peak. Abnormal ECG and elevated troponin in the setting of rapid heart rate. No obvious symptoms of chest pain. Check echo and pending results this could be managed as a nonischemic myocardial injury
troponin elevation
-Outpatient dose of Lopressor 100 mg BID was intermittently held while patient had trouble swallowing pills and then patient was ordered Lopressor 5 mg IV every 6 hours. Dobbhoff placed in the room on 05/24/2025 and will transition back to
Lopressor 100 mg BID via tube once it is confirmed that the Dobbhoff is functional.
-If patient continues with rapid rates and BP is an issue could consider adding amiodarone which can be crushed and placed down to tube.
-No indication for OAC.
-No clear underlying unifying cause for all of her symptoms, we will manage symptomatically her elevated troponin and rapid heart rate, this was reviewed with the patient's at bedside he is in agreement.
[2025-05-24] MEDS: APRESOLINE 10 MG IV ×3 (12:34→23:58)
--- NOTE | 2025-05-24 13:07 | W.PN.NEPH.PH ---
Today's Communication / Plan
-
DHT/TF
Assessment/Plan
-
IMP:
acute on chronic encephalopathy, chronic per
Hyponatremia, acute on chronic sodium 127-130 out pt in mar 2025
Hypochloremia
Hypokalemia
Hypomagnesemia
Accelerated HTN
Weakness/Fatigue from poor oral intake
Skin Cancer/Lip Cancer s/p Excision on 04/29
- [facility] - Dr. Kaur Alcantara - ENT
Chronic Leukopenia
Chronic HFpEF
Rheumatoid Arthritis- Xeljanz
Low folate level
RUL 3cm spiculated lung mass on CXR, but also seen on CT nexk 03/29/25
Plan:
IVF until DHT cleared for use
then can gauge BP control when meds are consistent
follow BMP
check ARR, cortisol
replete K
-
-
Date of Service: May 24, 2025
CC / HPI / ROS
-
Chief Complaint:
Hyponatremia
History of Present Illness:
Na up to 137
BP high
K low 3.3
Review of Systems:
tries to track
no fever
Labs
-
Labs:
WBC 3.6 10^3/uL (4.8-10.8) L 05/24/25 07:23
RBC 3.34 10^6/uL (4.20-5.40) L 05/24/25 07:23
Hgb 12.4 g/dL (12.0-16.0) 05/24/25 07:23
Hct 34.5 % (37.0-47.0) L 05/24/25 07:23
Plt Count 140 10^3/uL (130-400) 05/24/25 07:23
Sodium 137 mmol/L (135-145) 05/24/25 07:23
Potassium 3.3 mmol/L (3.5-5.1) L 05/24/25 07:23
Chloride 109 mmol/L (98-107) H 05/24/25 07:23
Carbon Dioxide 23 mmol/L (22-30) 05/24/25 07:23
BUN 18 mg/dl (7-17) H 05/24/25 07:23
Creatinine 0.5 mg/dL (0.6-1.0) L 05/24/25 07:23
eGFR > 60.00 05/24/25 07:23
Glucose 146 mg/dl (70-99) H 05/24/25 07:23
Calcium 9.5 mg/dl (8.4-10.2) 05/24/25 07:23
Albumin 4.2 g/dl (3.5-5.0) 05/17/25 17:45
Physical Exam
-
Vital Signs:
Vital Signs
Temp Pulse Resp BP Pulse Ox
98.0 F 88 20 166/87 97
05/24/25 07:20 05/24/25 12:34 05/24/25 07:20 05/24/25 12:34 05/24/25 08:45
Cardiovascular:: Regular rate and rhythm
Respiratory:: Bilateral: Coarse
Lung Excursion:: Normal
Abdomen:: Nontender and Soft
Bowel Sounds:: Normal
Extremity Edema:: None: Bilateral:
[2025-05-24] MEDS: KCL 270 MEQ IV (13:39)
--- NOTE | 2025-05-24 14:04 | CON.PUL ---
Consultation
Consultation Request
Date/Time Consultation Requested: 05/24/25
Date/Time Consultation Performed: 05/24/25
Performing Provider: Tj
Reason for Consultation: Lung nodule
Medical History
-
History of Present Illness:
70-year-old female with previous history of hypertension, RA presenting to for decreased mentation, poor p.o. intake, generalized weakness following recent surgery for lip cancer. She underwent surgery on 04/29/2025 at [facility]
surgical center, she was under anesthesia to perform this procedure. The notes that she had not been eating or drinking very well since her arrival at home post-procedure. She presents to ER 05/17/2025. She has since been minimally
responsive and requiring DHT for feeds.
Her notes that she had had progressive decline prior to the procedure due to new diagnosis of dementia, he was planning to take her for cognitive evaluation shortly before this event. She had been declining in her health prior to
presentation. She is a current smoker, up to 1 pack a day at her heaviest but had weaned down to 1/4 pack/day. She has been smoking since she was 10 years old, only quit since her hospitalization. Underwent CT demonstrating lung nodule suspicious
for malignancy.
Past Medical History
Past Medical History: Other (see list below)
Social History
Tobacco: Smoker
Alcohol: None
Drug: None
Family History
Family History: Reviewed & Not Pertinent
Allergies / Home Medications
Allergies
Allergy/AdvReac Type Severity Reaction Status Date / Time
No Known Allergies Allergy Verified 05/17/25 17:36
Home Medications
�Medication �Instructions �Recorded �Confirmed �Last Taken �Type
hydralazine 100 mg tablet 100 mg PO TID Blood Pressure 03/03/19 05/17/25 03/20/23 21:00 History
metoprolol tartrate 100 mg tablet 100 mg PO BID Blood Pressure 03/03/19 05/17/25 03/20/23 21:00 History
lisinopril 40 mg tablet 40 mg PO BID Blood Pressure 03/21/23 05/17/25 03/20/23 21:00 History
tofacitinib 5 mg tablet (Xeljanz) 5 mg PO BID Antirheumatic 03/21/23 05/17/25 03/20/23 21:00 History
alendronate 70 mg tablet 70 mg PO WEEKLY BONE 05/17/25 05/17/25 Unknown History
meloxicam 15 mg tablet 15 mg PO DAILY PRN pain 05/17/25 05/17/25 Unknown History
Review of Systems
-
History Source: Patient
All other systems: Negative unless noted
Vitals / Labs / Diagnostic Testing
Vital Signs
Temp Pulse Resp BP Pulse Ox
97.5 F 88 18 166/87 98
05/24/25 11:00 05/24/25 12:34 05/24/25 11:00 05/24/25 12:34 05/24/25 11:00
Lab Data
05/24/25 07:23
05/24/25 07:23
Microbiology
05/23/25 12:03 Blood/Venous Blood Culture - Preliminary
No Growth in 24 hours- Final report to follow
05/23/25 14:55 Urine Urine Culture - Final
NO GROWTH
05/17/25 22:23 Face - Left Wound Culture - Final
Yeast
05/17/25 22:23 Face - Left Gram Stain - Final
Diagnostic Testing:
Physical Exam
-
HEENT: Normocephalic, Anicteric and Other (Lip scar, lesion noted)
Cardiovascular: S1/S2 and Regular Rhythm
Respiratory: Clear and Non-Labored Respirations
GI: Soft, Non Distended, Non Tender and Other (DHT in place)
Neurology: Other (minimally responsive, RASS -4)
Skin: Warm and Dry
General: Comfortable and Other (NAD, thin/poor hygiene)
Assessment
-
70-year-old female with previous history of hypertension, RA presenting to for decreased mentation, poor p.o. intake, generalized weakness following recent surgery for lip cancer. She underwent surgery on 04/29/2025 at [facility]
surgical center, she was under anesthesia to perform this procedure. The notes that she had not been eating or drinking very well since her arrival at home post-procedure. She presents to ER 05/17/2025. She has since been minimally
responsive and requiring DHT for feeds.
Her notes that she had had progressive decline prior to the procedure due to new diagnosis of dementia, he was planning to take her for cognitive evaluation shortly before this event. She had been declining in her health prior to
presentation. She is a current smoker, up to 1 pack a day at her heaviest but had weaned down to 1/4 pack/day. She has been smoking since she was 10 years old, only quit since her hospitalization. Underwent CT demonstrating lung nodule suspicious
for malignancy.
Lung nodule
Lip cancer s/p removal
FTT, decreased PO intake s/p DHT
Generalized weakness
Leukopenia
Hyponatremia, hypokalemia
Hyperglycemia
Elevated troponin
Conditions present prior to admission
Hypertension
Gastric ulcer
Rheumatoid arthritis
Herpes zoster
SVT
Carlson's esophagus
Dementia
Plan
No oxygen was needed on admission, currently saturating >90% on RA
Prior history of lung disease is NOT noted but suspected, given her extensive smoking history since age 10
At risk for lung cancer and COPD, no prior PFTs for review
CXR/CT obtained indicating lung nodule, last CT for comparison was 2015
She had not been getting yearly screening
Other imaging reviewed--brain MRI without any acute process
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
This could be related to her lung cancer as well, suspect squamous but would need biopsy for confirmation
Given her recent decline following anesthesia for her lip surgery, the is reluctant to pursue any additional procedures that would also require anesthesia
This would cause her to decline further in her mental status
She had previous history of dementia was going to have cognitive testing completed
The states that she had been decline prior to presentation
She now demonstrates failure to thrive, decreased p.o. intake requiring DHT placement
ECHO results are reviewed indicating stable heart function
Unlikely related to underlying cardiomyopathy
Smoking history noted--since age 10
Smoking cessation recommended
We discussed the pros and cons of undergoing procedure to demonstrate her lung cancer
Overall, this may not change her ultimate outcome if her mental status has been an issue
May also consider neurology evaluation with EEG to rule out seizures
The earliest we could proceed would be Friday
Alternatively, this could be pursued as outpatient
An outpatient PET scan may give more details if this is metastatic
Prolonged discussion with today
We will follow
Diagnostic Data
Chest X-Ray:
CT Scan: 05/24/25: 1. Interval decrease in size of RIGHT upper lobe primary lung neoplasm now measuring 2.0 cm in diameter, previously 2.3 cm on 03/29/25. Interval decrease in size of superior mediastinal lymphadenopathy.
2. New irregular elongated lobular opacity extending from the posterior right hilum to the pleural surface of the superior segment of the right lower lobe with peripheral branching suspicious for impacted bronchus which could be secondary to right
hilar lymphadenopathy or bronchopneumonia. No pleural effusions appreciated.
3. Partially imaged atrophic left kidney.
4. Age-indeterminate moderate compression deformity of L2 vertebral body.
Brain MRI 05/19/25- No acute intracranial abnormality noted.
CT Neck 03/29/25: 1. Left facial mass measuring up to 2.8 cm in diameter as above, consistent with the given history of facial squamous cell carcinoma. No cervical lymphadenopathy identified.
2. Right upper lobe mass with spiculated margins measuring up to 3.0 cm in diameter, highly suspicious for primary pulmonary malignancy. Associated right hilar and mediastinal lymphadenopathy.
3. Advanced atherosclerotic changes as above.
Echo: 05/24/25- 1. Technically difficult study.
2. Normal left jugular chamber size and myocardial thickness with hyperdynamic left ventricular systolic function and ejection fraction 70 to 75%.
3. Mild aortic regurgitation.
4. Compared to a prior echo from February 2023, findings are similar.
PFT's:
Reports and relevant images were personally reviewed.
Total time spent on this consultation __55__ minutes which includes review of history, physical exam, medications, laboratory data, personal review of imaging, extensive review of outpatient records, discussion with care team and respiratory therapy.
--- NOTE | 2025-05-24 14:37 | PTOTSP ---
ST Follow-Up
Despite maximum oral care provided with toothette swabs and suctioning, as well as persistent verbal/tactile cueing, pt's mentation did not improve and pt was deemed not appropriate for PO trials. Pt currently presents with insufficient level of
alertness for PO intake at this time.
Recommendations:
- STRICT NPO; use dobhoff for all means of nutrition, hydration, and medication administration.
- STRICT ORAL CARE - q4 hours with moist and dry toothette swabs and suctioning (log on door).
- STRICT ASPIRATION PRECAUTIONS: HOB upright as often as possible; use suctioning PRN.
- Consider wound care consultation for surgical site?
- DOOR FRAME ASSEMBLER MACHINE to f/u at a high priority to re-assess pt's candidacy to safely resume PO intake.
--- NOTE | 2025-05-24 15:06 | W.PN.UPDATE ---
Addendum entered and electronically signed by ELIESER Jaquez 05/24/25 15:54:
07/24 abd Xray Dobbhoff feeding tube travels inferior to the denise and diaphragm and terminates within the region of the stomach.
reviewed with staff ok to use tube for meds and feeds
Original Note:
Update Note
Progress Note Update
asked to assist with DHT placement. current tube coiled in distal esophagus. Pulled back to 20 cm and readvanced to 60cm. Confirmed with air insufflation. Will check X ray to confirm placement.
[2025-05-24 15:15] LABS: Troponin I 0.064 ng/ml
[2025-05-24] MEDS: LOVENOX 40 MG SC (17:15)
[2025-05-24] MEDS: LOPRESSOR 25 MG TUBE ×2 (17:26→23:57)
[2025-05-24] MEDS: VASOTEC 1.25 MG IV (18:27)
[2025-05-25 03:52] VITALS: BP 160/71
[2025-05-25] MEDS: APRESOLINE 10 MG IV (05:55)
[2025-05-25] MEDS: LOPRESSOR 25 MG TUBE (05:55)
[2025-05-25 06:00] VITALS: BMI 17.4
[2025-05-25 06:23] LABS: Hematocrit 34.8 % (37.0-47.0); Hemoglobin 11.9 g/dL (12.0-16.0); Mean Corp Hgb Conc. 34.2 g/dL (33.0-37.0); Mean Corpuscular Volume 108.8 fL (81.0-99.0); Platelet Count 158 10^3/uL (130-400); Red Cell Dist. Width 12.1 % (11.5-14.5)
[2025-05-25 06:52] LABS: Glucose - Point of Care 325 mg/dl (70-99)
[2025-05-25 06:55] LABS: Blood Urea Nitrogen 18 mg/dl (7-17); Calcium 9.3 mg/dl (8.4-10.2); Carbon Dioxide 22 mmol/L (22-30); Chloride 110 mmol/L (98-107); Estimated Creatinine Clearance 53 ml/min; Glucose 266 mg/dl (70-99); Potassium 4.3 mmol/L (3.5-5.1); Sodium 139 mmol/L (135-145); eGFR > 60.00
--- NOTE | 2025-05-25 07:07 | W.PN.DEATH ---
Addendum entered and electronically signed by Lan Guerrero MD 05/25/25 10:45:
Addendum
ELIESER Dickson was able to talk to the and notified him.
End
Original Note:
Pronouncement of
-
Called to see patient to pronounce.
No spontaneous heart tones or respirations noted.
Patient not responsive to verbal stimuli.
Patient is pronounced .
Called family few times, unable to reach, left voice message with phone number to call back.
Time of : 06:56
Date of : 05/25/25
Family Notified: No
--- NOTE | 2025-05-25 07:15 | W.PN.ANESINT ---
Anesthesia Intubation Note
- Intubation Note
Intubation Note:
Diagnosis: cardiac arrest
Blade: MAC 4
Tube Size: 8.0
Depth: 21cm
Side Taped: right
Drugs Used: none
Grade View: I
EtCO2 Present: yes
Atraumatic: yes
Attempts: 1
Insertion Start and Stop Time: 0640
SaO2 Pre:
SaO2 Post:
Glidescope Used: yes
Other Airway Adjustments: no
Pre-Oxygenated: yes
Portable Chest X-Ray: to folllow
RSI:
Suctioned: yes thick yellow secretions
Bilateral Breath Sounds Confirmed: yes
Vent Settings:
Settings per _x__Attending Physician
[2025-05-25 07:32] LABS: Cortisol, Random 55.1 ug/dl
--- NOTE | 2025-05-25 08:15 | PTCARENOTE ---
Pt bradycardic on tele monitor, RN into room to assess patient, no palpable pulse. CPR initiate and CODE 9 called. See code sheet.
--- NOTE | 2025-05-25 09:49 | W.DCSUMMARY ---
Discharge Summary
Discharge Data
Date of Admission: 05/17/25
Date of Discharge: 05/25/25
-
Pending Results: No
Hospital Course
70 years old female was brought in from home by her after decreasing oral intake. Patient had recent lip cancer surgery and was starting to become very weak, failing to thrive, inability to tolerate oral intake. reported that
patient had mild dementia but seems to progress since her lip surgery in March 2025. Patient was showing combative behavior at home. In the ER, she was noticed to have hyponatremia, hypokalemia and hypomagnesemia with clinical dehydration.
Patient was admitted to the hospital. She did not have leukocytosis or fever. Urine test did not show signs of infection. Brain imaging studies including MRI did not show acute intracranial abnormality but showed moderate hyperintensity within
the periventricular and deep subcortical white matter, likely related to chronic small vessel ischemic changes, tiny old microhemorrhages in the bilateral basal ganglia and left temporal-occipital lobe. Nephrology was consulted for treatment of
electrolyte imbalance. She received intravenous fluids and with adjustment to treat hyponatremia. Patient was diagnosed with a chronic SIADH. She had normal T4 and cortisol level. Patient was noted to have uncontrolled hypertension. Medications
were adjusted. Cardiology was consulted. Echocardiogram showed left ventricular ejection fraction of 70 to 75% with no regional wall motion abnormalities. She had mild elevation of troponin was felt secondary to uncontrolled blood
pressure/tachycardia. Cardiology recommended to continue beta-morro therapy and was given aspirin. Patient was diagnosed with toxic metabolic encephalopathy on underlying dementia. She continued to show lethargy and inability to tolerate oral
diet. Case discussed with her agreed to try feeding tube knowing the overall prognosis was not favorable. Dobbhoff was inserted by GI and confirmed position by imaging study that showed right upper lung spiculated mass. knew about
it from out patient testing but patient had not had any follow-up. Pulmonary doctor was consulted and recommended further workup including biopsy and PET scan. Scan of the chest did not show pneumonia. Tube feeding was started through Dobbhoff.
Patient seem to tolerate it. Subsequent blood work showed improvement in sodium and potassium level. The overall plan was to give patient short-term nutrition and to get her status and better conditions to pursue rehab and possible further workup
for her lung and lip cancer. Patient had an episode of bradycardia on the heart monitor and subsequent pulseless arrest. Code 9 was called immediately and CPR was initiated. Patient did not respond despite aggressive resuscitative measures.
Patient was pronounced on 05/25. Her family was informed.
Discharge Plan
-
Patient Disposition:
Date/Time
Date/Time: 05/25/25 06:56
Discharge Date and Time
Discharge Date/Time: 05/25/25 06:56
Print Language: KOREAN
--- NOTE | 2025-05-25 11:06 | CHAP ---
Emotional and spiritual support provided for Massiel Pastrana's of 48 years.
--- NOTE | 2025-05-25 11:21 | PN.CDI ---
Addendum entered and electronically signed by Lan Guerrero MD 05/25/25 11:35:
Metabolic
Original Note:
CDI
- -
CDI:
Physician Documentation Request
Admit Date: 05/17/25 22:38
Dear Doctor Cesar,
Patient presented to ED for evaluation of poor po intake.
Patient diagnosis includes Acute on chronic encephalopathy, hypochloremia, hypokalemia, hypomagnesemia, SIADH, uncontrolled BP
Please specify the known or suspected type of the documented acute encephalopathy.
Metabolic
Hypertensive
Other
Use of terms such as suspected, likely, concern for, or probable (associated with a specific diagnosis that is being evaluated, monitored, or treated as if it exists) are acceptable and can be coded in the inpatient setting, when documented at the
time of discharge.
Thank you,
Penny Kunz RN, BSN
CDI Specialist
tiger text
Please use your independent medical judgment in providing your response.
== END 2025-05-25 06:56 | disposition expired | DRG 643 ==
LOC: 4 EAST ACU 22:38
PROVIDERS: Internal Medicine; Nurse Practitioner; Registered Nurse; Specialist; Student in an Organized Health Care Education/Training Program; ADMITTING PHYSICIAN Hospitalist; ATTENDING PHYSICIAN Internal Medicine; CONSULT PHYSICIAN Internal Medicine; EMERGENCY PHYSICIAN Emergency Medicine; FAMILY PHYSICIAN Family Medicine; OTHER PHYSICIAN Internal Medicine Cardiovascular Disease
DX: E22.2 Syndrome of inappropriate secretion of antidiuretic hormone (principal); G92.8 Other toxic encephalopathy; I50.32 Chronic diastolic (congestive) heart failure; I5A Non-ischemic myocardial injury (non-traumatic); I47.19 Other supraventricular tachycardia; Z68.1 Body mass index [BMI] 19.9 or less, adult; E87.6 Hypokalemia; E83.42 Hypomagnesemia; E87.8 Other disorders of electrolyte and fluid balance, not elsewhere classified; R62.7 Adult failure to thrive; F03.A0 Unspecified dementia, mild, without behavioral disturbance, psychotic disturbance, mood disturbance, and anxiety; Z85.828 Personal history of other malignant neoplasm of skin; I11.0 Hypertensive heart disease with heart failure; D72.819 Decreased white blood cell count, unspecified; M06.9 Rheumatoid arthritis, unspecified; Z85.819 Personal history of malignant neoplasm of unspecified site of lip, oral cavity, and pharynx; E86.0 Dehydration; F17.210 Nicotine dependence, cigarettes, uncomplicated; Z79.83 Long term (current) use of bisphosphonates; Z79.899 Other long term (current) drug therapy; B02.9 Zoster without complications; I35.1 Nonrheumatic aortic (valve) insufficiency; I46.9 Cardiac arrest, cause unspecified; K22.70 Barrett's esophagus without dysplasia; Z82.49 Family history of ischemic heart disease and other diseases of the circulatory system; R63.6 Underweight
CPT/HCPCS: 70551; 71045; 71250; 73564; 74018; 80048; 80053; 81003; 81015; 82088; 82140; 82533; 82607; 82746; 82962; 83690; 83735; 83930; 83935; 84244; 84295; 84300; 84425; 84439; 84443; 84484; 85025; 85027; 87040; 87070; 87086; 87147; 87205; 92526; 92610; 93005; 93306; 96361; 96365; 97163; 97167; 97530; 99284